=== PATIENT | male | born 1945 | race Caucasian/White ===

== ENCOUNTER → 2017-09-16 07:04 | Outpatient (CLI) | payer MEDICARE, OTHER, SELFPAY ==
[2017-09-16 09:09] LABS: Albumin, Serum 3.5 g/dL (3.2-5.0); BUN 32 mg/dL (7-18); BUN/Creat Ratio 18.8 RATIO (10-20); Calcium,Total 8.7 mg/dL (8.5-10.1); Chloride 105 mmol/L (98-107); EST Glomerular Filtration Rate 42 mL/min (>60); Est Glom Filt Rate - Afr Amer 51 mL/min (>60); Glucose 138 mg/dL (74-106); Phosphorus 2.7 mg/dL (2.5-4.9); Potassium 4.4 mmol/L (3.5-5.1); Sodium Level 139 mmol/L (136-145)
== END ==
PROVIDERS: Family Provider Family Medicine; PCP Family Medicine; Visit Provider Internal Medicine Nephrology
DX: N18.3 Chronic kidney disease, stage 3 (moderate) (principal)
CPT/HCPCS: 36415; 80069

== ENCOUNTER 2018-02-09 05:32 | Emergency (ER) | payer MEDICARE, OTHER, SELFPAY ==
[2018-02-09 05:34] VITALS: BP 135/62; PULSE 105; RESP 24; TEMP 35.4; O2SAT 95; BMI 47.0
[2018-02-09] MEDS: Oxymetazoline 0.05% 1 SPRAY SPRAY.BTL 2 SPRAY NASAL (05:39)
--- NOTE | 2018-02-09 06:08 | ED.VISSUMM ---
- ER Visit Summary Date of Service: 02/09/18 Chief Complaint: Nosebleed History of Present Illness: The patient is a 72 M who woke this morning developed nosebleed from the right nostril. Patient is currently on Xarelto. He has reportedly had cold symptoms recently. Past history significant for coronary disease, AK, COPD, diabetes, hypertension, high cholesterol. Physical Examination: Vital signs significant for mild tachycardia at 105. Patient sitting on the side of bed with a nasal clamp in place. Head and neck examination reveals blood in the right nare. Posterior pharyngeal exam reveals mild blood. Heart is regular rate and rhythm. Lung sounds are clear. Test Results: [] Emergency Department Course and Treatment: Nasal clamp was removed and cottonball saturated with Cetacaine and Afrin was placed in the right nostril. After a few minutes this was removed and a 5.5 cm Rhino Rocket was placed in the right nostril. Mouth was washed. On repeat examination patient has had no further bleeding. Patient is able to ambulate in the emergency room with me with no further bleeding. He is sent home with a syringe to remove the balloon if needed emergently. He will be referred to Dr. Velasquez, on-call for ENT. He is to follow-up in 2-3 days. Treatment Plan: [] Disposition: Discharge Impression: Epistaxis This note was generated with [employer] dictation software. It may contain incorrect words, spelling, and punctuation that were not noted in review of the chart prior to signing ED Disposition - Plan for ED Patient: Chief Complaint: Nosebleed Referrals: Mauro Espinosa MD [Primary Care Provider] -
--- NOTE | 2018-02-09 06:44 | ED.DEP ---
ED Disposition - Plan for ED Patient: Disposition: Home or Assisted Living Chief Complaint: Nosebleed Instructions: Nosebleed Referrals: Landon Odell MD [STAFF PHYSICIAN] - 2 Days
--- NOTE | 2018-02-09 06:52 | ED.DEP ---
ED Disposition - Plan for ED Patient: Disposition: Home or Assisted Living Chief Complaint: Nosebleed Instructions: Nosebleed Prescriptions: Benzonatate [Tessalon Perle] 100 mg PO 4X/DAY PRN PRN #14 cap PRN Reason: Cough Referrals: Landon Odell MD [STAFF PHYSICIAN] - 2 Days
[2018-02-09 06:54] VITALS: BP 122/65; PULSE 86; RESP 16; O2SAT 95
== END 2018-02-09 06:56 | disposition home or self-care (01) ==
PROVIDERS: Emergency Provider Emergency Medicine; Family Provider Family Medicine; PCP Family Medicine
DX: R04.0 Epistaxis (principal); I25.10 Atherosclerotic heart disease of native coronary artery without angina pectoris; I25.2 Old myocardial infarction; I10 Essential (primary) hypertension; J44.9 Chronic obstructive pulmonary disease, unspecified; E78.00 Pure hypercholesterolemia, unspecified; E11.9 Type 2 diabetes mellitus without complications; Z79.01 Long term (current) use of anticoagulants; Z79.82 Long term (current) use of aspirin; Z79.84 Long term (current) use of oral hypoglycemic drugs; Z79.899 Other long term (current) drug therapy; Z87.891 Personal history of nicotine dependence
CPT/HCPCS: 30903; 99282

== ENCOUNTER → 2018-05-03 10:02 | Outpatient (CLI) | payer MEDICARE, OTHER, SELFPAY ==
[2018-05-03 11:37] LABS: Hematocrit 36.3 % (40-54); Hemoglobin 10.9 g/dl (13.0-16.5); Mean Corpuscular Hgb 24.8 pg (27.0-32.0); Mean Corpuscular Volume 82.5 fL (80-94); Platelet Count 209 K/mm3 (150-450); RBC Distribution Width CV 19.1 % (11.6-14.6); RBC Distribution Width SD 58.2 fl (35.1-43.9); White Blood Count 9.7 K/mm3 (4.4-11.0)
[2018-05-03 11:42] LABS: Scan Indicated on CBC? Y/N NO
[2018-05-03 12:00] LABS: PTHIN 45.2 pg/mL (18.4-80.1)
[2018-05-03 12:01] LABS: Albumin, Serum 3.5 g/dL (3.2-5.0); BUN 29 mg/dL (7-18); BUN/Creat Ratio 15.1 RATIO (10-20); Calcium,Total 9.5 mg/dL (8.5-10.1); Chloride 102 mmol/L (98-107); Creatinine, Serum 1.92 mg/dL (0.70-1.30); EST Glomerular Filtration Rate 37 mL/min (>60); Est Glom Filt Rate - Afr Amer 45 mL/min (>60); Glucose 62 mg/dL (74-106); Phosphorus 3.5 mg/dL (2.5-4.9); Potassium 4.2 mmol/L (3.5-5.1); Sodium Level 140 mmol/L (136-145)
== END ==
PROVIDERS: Family Provider Family Medicine; PCP Family Medicine; Referring Provider Internal Medicine Nephrology; Visit Provider Internal Medicine Nephrology
DX: N18.3 Chronic kidney disease, stage 3 (moderate) (principal)
CPT/HCPCS: 36415; 80069; 83970; 85027

== ENCOUNTER 2018-07-21 22:28 | Emergency (ER) | payer MEDICARE, OTHER, SELFPAY ==
[2018-07-21 22:29] VITALS: PULSE 80; RESP 16; TEMP 36.7; O2SAT 97; BMI 48.6
[2018-07-21] MEDS: Mixture 30 ML Bottle 5 ML TOPICAL (22:55)
--- NOTE | 2018-07-21 22:56 | ED.DCSUM_ITS ---
History of Present Illness Chief Complaint: Nosebleed Informant: Patient Onset: Hours - 1 Context: Sudden Onset - w/ coughing Timing: Continuous Quality: brisk oozing Location: left naris Current Severity: Moderate Maximum Severity: Severe Worsened by: nothing Relieved by: holding pressure Associated Symptoms: nasal discomfort. no sob, FB, injury. Narrative: On Xarelto. Thinks maybe due to chronic Afib. Has had spontaneous nosebleeds in past, from both sides. Swallowing some blood but not a lot. Mainly bleeding from left side this time. Prior similar symptoms: Yes Recent Illness/Hospitalization: No - Past Medical History (1) DM (diabetes mellitus), type 2 Status: Chronic (2) HLD (hyperlipidemia) Status: Chronic (3) HTN (hypertension) Status: Chronic (4) History of abdominal aortic aneurysm repair Status: Chronic (5) History of acute myocardial infarction Status: Chronic Comment: in 2002 (6) KASIA on CPAP Status: Chronic (7) Pulmonary hypertension Status: Chronic Comment: PA 31 on an ECHO from 2009 (8) COPD (chronic obstructive pulmonary disease) Status: Chronic Past Medical History - Allergies and Home Meds Allergies/Adverse Reactions: Allergies No Known Allergies Allergy (Verified 07/21/18 22:31) Primary Care Physician: Fili Walls MD [STAFF PHYSICIAN] - (2-3 days -- call for appt, and tell them you are on Xarelto) Surgical History: no surgical history, herniorrhaphy - 1967, tonsillectomy, - - aortic anuerysm in 2009 Lives: Spouse/ Significant Other Smoking Status: Unknown if ever smoked - Family History Maternal Family History: Reports: Heart Disease - His mother at the age of 88 and had coronary artery disease and Cancer and he does not know where the cancer started Paternal Family History: Reports: Heart Disease - His father at the age of 81 Sibling Family History: Reports: - - he has 3 siblings and states that they are all h ealthy Offspring Family History: Reports: - - he has a dtr who has an irregular heart rhythm Review of Systems General: Denies: Chills, Fever ENT: Reports: - - nosebleed. nose pain. Cardiovascular: Denies: Chest pain Respiratory: Reports: Cough. Denies: Dyspnea, Sputum Gastrointestinal: Denies: Nausea, Vomiting Physical Exam Vital Signs/Narrative: Vital Signs Temp Pulse Resp Pulse Ox 07/21/18 22:29 98.0 F 80 16 97 Inital Vital Signs reviewed: Yes General: Well nourished, Well developed, Obese, No Acute Distress Head: Normocephalic, Atraumatic ENT: Moist mucous membranes, - - bilateral nares w/ blood and clots present, mild active bleeding left naris. blood present in POP w/o active bleeding there. Respiratory: No distress, - - no stridor Diagnostic/Tx/Re-eval - Medical Decision Making Patient with mild oozing while holding pressure, brisk bleeding from the left naris when not holding pressure. Airway patent. After setting up equipment and medication for vasoconstriction and local anesthesia, I gave the patient a box of tissues and had him blow all of the blood and clots out of both sides of his nose, he was able to move air through both sides easily. I placed a cotton ple dget soaked in Cass mix into the left naris, the patient tilted so that the medication ran back into his posterior oropharynx, and after 10-15 minutes, bleeding was well controlled. I reexamined him. I do not see the etiology of the bleeding. The right side is clear. There is no active posterior oropharyngeal bleeding. After discussing with the patient, and recommending a packing, he was amenable to it and provided verbal consent. He was given a 5.5 cm rapid Rhino which controlled his bleeding well. Advised that he follow-up with ENT in 2-3 days for reevaluation and removal. Procedures Procedure(s): Anterior nasal packing -- Inflatable rapid rhino 5.5cm inserted w/o complication, tolerated well, bleeding well-controlled. ED Disposition - Plan for ED Patient: Disposition: Home or Assisted Living Diagnosis: Acute anterior epistaxis Instructions: Nosebleed Referrals: Fili Walls MD [STAFF PHYSICIAN] - (2-3 days -- call for appt, and tell them you are on Xarelto)
[2018-07-21 23:30] VITALS: BP 140/65
== END 2018-07-21 23:32 | disposition home or self-care (01) ==
PROVIDERS: Emergency Provider Emergency Medicine; Family Provider Family Medicine; PCP Family Medicine
DX: R04.0 Epistaxis (principal); I48.2 Chronic atrial fibrillation; I25.2 Old myocardial infarction; I10 Essential (primary) hypertension; I27.20 Pulmonary hypertension, unspecified; E11.9 Type 2 diabetes mellitus without complications; E78.5 Hyperlipidemia, unspecified; J44.9 Chronic obstructive pulmonary disease, unspecified; G47.33 Obstructive sleep apnea (adult) (pediatric); Z79.01 Long term (current) use of anticoagulants; Z79.82 Long term (current) use of aspirin; Z79.84 Long term (current) use of oral hypoglycemic drugs; Z79.899 Other long term (current) drug therapy
CPT/HCPCS: 30901; 99282

== ENCOUNTER 2018-09-30 02:51 | Inpatient (IN) | payer MEDICARE, OTHER, SELFPAY ==
[2018-09-30] VITALS (15 sets, daily range): BP systolic 107–151; BP diastolic 56–97; PULSE 80–92; RESP 16–21; TEMP 36–36.8; O2SAT 93–97; BMI 48.4; BMI 49.0; BMI 49.1
[2018-09-30] MEDS: Ondansetron 4 MG/2 ML Vial IM (03:20)
[2018-09-30] MEDS: TRANEXAMIC ACID 1,000 MG/10 ML ML 500 MG OPERA.SITE (03:22)
[2018-09-30] MEDS: TRANEXAMIC ACID 1,000 MG/10 ML ML 500 MG IRRIGATION (04:03)
--- NOTE | 2018-09-30 04:34 | ED.DCSUM_ITS ---
- ER Visit Summary Date of Service: 09/30/18 Chief Complaint: Patient presents for nosebleed. History of Present Illness: The patient is a 73 M who presents for left-sided nosebleed. Patient woke up at 00:30 coughing and noted his nose then began to bleed. He noted blood coming from the left nostril. Patient is on Xarelto. He applied pressure and was unable to get the bleeding to stop. He denies any shortness of breath or nausea. Patient has had prior nosebleeds while on Xarelto that were difficult to control. Physical Examination: Patient is awake and alert, sitting on the bed, emesis basin in hand and towel pinching nose, blood on hands and face, emesis basin with blood in it. No respiratory distress. Brisk bleeding from the left naris. Some oozing from the right naris. Blood noted in the mouth and mild posterior pharynx. No increased work of breathing. Heart regular rate and rhythm. Remainder of exam unremarkable at this time. Test Results: Abnormal Lab Results 09/30/18 09/30/18 09/30/18 04:15 04:15 04:15 WBC 9.2 RBC 3.78 L Hgb 10.1 L Hct 32.9 L MCV 87.0 MCH 26.7 L MCHC 30.7 L RDW 17.1 H RDW Differential 53.5 H Plt Count 176 MPV 11.1 Immature Gran % (Auto) 0.200 Neut % (Auto) 73.9 H Lymph % (Auto) 14.1 L Thomas % (Auto) 10.2 H Eos % (Auto) 1.3 Baso % (Auto) 0.3 Absolute Neuts (auto) 6.8 Absolute Lymphs (auto) 1.30 Total Counted Not Reportable PT 26.1 H INR 2.4 APTT 57.9 H Sodium 137 Potassium 5.1 Chloride 105 Carbon Dioxide 27.0 Anion Gap 5 BUN 35 H Creatinine 1.57 H Estim Creat Clear Calc 38.38 Est GFR (MDRD) Af Amer 56 L Est GFR (MDRD) Non-Af 46 L BUN/Creatinine Ratio 22.3 H Glucose 134 H Calcium 8.4 L Medications Given Discontinued Medications Ondansetron HCl (Zofran) 4 mg IM X1 ONE Stop: 09/30/18 03:20 Last Admin: 09/30/18 03:20 Dose: 4 mg Thrombin (Floseal) 1 kit TOPICAL X1 ONE Stop: 09/30/18 03:46 Last Admin: 09/30/18 03:48 Dose: 1 kit Tranexamic Acid (Tranexamic Acid) 500 mg OPERA.SITE X1 ONE Stop: 09/30/18 03:21 Last Admin: 09/30/18 03:22 Dose: 500 mg Tranexamic Acid (Tranexamic Acid) 500 mg IRRIGATION X1 ONE Stop: 09/30/18 04:02 Last Admin: 09/30/18 04:03 Dose: 500 mg Emergency Department Course and Treatment: Patient presents with brisk bleeding from the left naris. Because of the briskness, Rhino Rocket packing was initially used. Patient blew the clots out of the naris. A 7.5 cm Rhino Rocket was soaked in sterile water and inserted gently and without resistance into the left naris. It was inflated until the balloon was medium soft. Bleeding initially slowed down, however then patient began dry heaving, resulting in significant bleeding from the anterior naris around the Rhino Rocket on the left. Patient continued to dry heave, and the Rhino Rocket was removed, result ing in no further dry heaving or gagging. Because patient did not tolerate the Rhino Rocket, 500 mg of TXA was diluted and 5 cc of sterile water and nebulized. Patient had significant slow down of the bleeding from the left naris. After the nebulized TXA, Merocel was placed into the left naris and the remainder of the TXA was used to saturate it. Again, patient began coughing and dry heaving and did not tolerate the placement of the Merocel. Left naris began bleeding again and dripping from the Merocel. Attempted placement of Floseal without success. Patient began briskly bleeding around it. Patient discussed with Dr. Wheeler, and rhinorocket soaked in TXA attempted, this time less inflated. Patient tolerated the rhinorocket this time, and bleeding slowed to a small ooze anteriorly. No posterior bleeding into the pharynx noted. CBC, coags, and type and screen obtained. Patient discussed with Dr. Seo for admission with Dr. Wheeler on consult. Patient continued to have minor oozing but no further serious bleeding. Treatment Plan: [] Disposition: [] Impression: Left anterior epistaxis, anticoagulated on Xarelto This note was generated with [employer] dictation software. It may contain incorrect words, spelling, and punctuation that were not noted in review of the chart prior to signing ED Disposition - Plan for ED Patient: Disposition: Acute Care Hospital [facility]
[2018-09-30 04:42] LABS: Absolute Neutrophil Count 6.8 X10^3/uL (2.0-7.7); Basophil# 0.03 X10^3/uL; Basophil% 0.3 % (0-1); Eosinophil# 0.12 X10^3/uL; Eosinophils% 1.3 % (0-5); Hematocrit 32.9 % (40-54); Hemoglobin 10.1 g/dl (13.0-16.5); Lymphocyte % 14.1 % (19-41); Mean Corp Hgb Conc 30.7 g/gl (32-36); Mean Corpuscular Hgb 26.7 pg (27.0-32.0); Mean Platelet Vol. 11.1 fl (6.2-12.0); Monocyte# 0.94 X10^3/uL; Monocyte% 10.2 % (0-10); Neutrophil # 6.78 X10^3/uL (2.7-7.7); Neutrophil % 73.9 % (47-70); Platelet Count 176 K/mm3 (150-450); RBC Distribution Width CV 17.1 % (11.6-14.6); RBC Distribution Width SD 53.5 fl (35.1-43.9); Red Blood Count 3.78 M/mm3 (4.6-6.2); White Blood Count 9.2 K/mm3 (4.4-11.0)
[2018-09-30 04:43] LABS: POSITIVE COUNT NO; POSITIVE DIFFERENTIAL NO; POSITIVE MORPHOLOGY NO
[2018-09-30 04:47] LABS: Anion Gap 5 (5-15); BUN 35 mg/dL (7-18); BUN/Creat Ratio 22.3 RATIO (10-20); Calcium,Total 8.4 mg/dL (8.5-10.1); Chloride 105 mmol/L (98-107); Creatinine, Serum 1.57 mg/dL (0.70-1.30); EST Glomerular Filtration Rate 46 mL/min (>60); Est Glom Filt Rate - Afr Amer 56 mL/min (>60); Estimated Creatinine Clearance 38.38 ml/min; Glucose 134 mg/dL (74-106); Potassium 5.1 mmol/L (3.5-5.1); Sodium Level 137 mmol/L (136-145)
[2018-09-30 04:48] LABS: International Normalized Ratio 2.4; Prothrombin Time (Protime)PT. 26.1 SECONDS (11.7-14.9)
[2018-09-30 04:49] LABS: Partial Thromboplast Time 57.9 Seconds (24.1-36.2)
--- NOTE | 2018-09-30 04:50 | HP.PCM_ITS ---
Problem List (1) Nosebleed Status: Acute (2) PAF (paroxysmal atrial fibrillation) Status: Chronic (3) COPD (chronic obstructive pulmonary disease) Status: Chronic Qualifiers: COPD type: unspecified COPD Qualified Code(s): J44.9 - Chronic obstructive pulmonary disease, unspecified (4) DM (diabetes mellitus), type 2 Status: Chronic Qualifiers: Diabetes mellitus extermination inspector insulin use: without shelter use Diabetes mellitus complication status: with unspecified complications Qualified Code(s): E11.8 - Type 2 diabetes mellitus with unspecified complications (5) HLD (hyperlipidemia) Status: Chronic Qualifiers: Hyperlipidemia type: unspecified Qualified Code(s): E78.5 - Hyperlipidemia, unspecified (6) HTN (hypertension) Status: Chronic Qualifiers: Hypertension type: essential hypertension Qualified Code(s): I10 - Essential (primary) hypertension (7) History of abdominal aortic aneurysm repair Status: Chronic (8) History of acute myocardial infarction Status: Chronic Comment: in 2002 (9) Morbid obesity with body mass index of 40.0-49.9 Status: Chronic (10) KASIA on CPAP Status: Chronic (11) Pulmonary hypertension Status: Chronic Comment: PA 31 on an ECHO from 2009 History of Present Illness Date of Admission: 09/30/18 Chief Complaint: Nosebleed The patient is a 73 y/o M w/ PMHx: Chronic normocytic anemia, CAD s/p CABG but unclear interventions following w/ [employer] in [place], ? Valvular Heart Disease, Hx MT, HTN, HLD, Morbid Obesity, Chronic COPD, Former heavy tobacco use, Diabetes mellitus type II, PAF s/p pacemaker on Xarelto, KASIA on CPAP q HS who presents to the [facility] ED on 09/30/18 with history of ongoing nosebleed from the left nare 12:30 pm, noted to have awoken with a coughing fit prompting the ble eding with ongoing bleeding despite notable applied pressure. Patient had rhinorocket placed secondary to the severity of the bleeding; however, the patient began to dry heave resulting in a significant amount of bleeding from the anterior nare around the rocket therefore this was removed and 500 mg of TXA was diluted and 5 cc of sterile water and nebulized was performed w/ improvement in the bleeding. Patient had recurrent coughing, dry heaving with poor tolerance from the Merocel, additionally, floseal with continued bleeding. Repeat attempt for rhinorocket soaked in TXA attempted with less inflation with some slowing of the oozing. Work-up in the ED work-up included T 96.8, HR 89, BP 118/58, RR 18, 96% on RA, pending CBC, coags, BMP and T+S at time of request to evaluate patient. ENT was consulted per ED and willing to immediately evaluate the patient in case of re-bleeding. ENT requested initiation of augmentin. Requested ice pack addition to current interventions in the ED. Past Medical History Past Medical History (Chronic Problems): Chronic Problems PAF (paroxysmal atrial fibrillation) (Chronic) History of abdominal aortic aneurysm repair (Chronic) HLD (hyperlipidemia) (Chronic) Pulmonary hypertension (Chronic) PA 31 on an ECHO from 2009 Morbid obesity with body mass index of 40.0-49.9 (Chronic) DM (diabetes mellitus), type 2 (Chronic) KASIA on CPAP (Chronic) Nicotine addiction (Chronic) Ventral hernia without obstruction or gangrene (Chronic) Umbilical hernia without obstruction or gangrene (Chronic) HTN (hypertension) (Chronic) COPD (chronic obstructive pulmonary disease) (Chronic) History of acute myocardial infarction (Chronic) in 2002 Allergies No Known Allergies Allergy (Verified 09/30/18 02:51) Home Medications: Ambulatory Orders Medication Instructions Recorded Aspirin [Aspirin, Baby] 81 mg PO DAILY@0800 10/04/14 Atorvastatin Calcium [Lipitor] 20 mg PO QHS 10/04/14 Lisinopril/Hydrochlorothiazide 1 each PO DAILY 10/04/14 [Zestoretic 20-12.5 mg Tablet] Metformin HCl [Glucophage] 1,000 mg PO BIDCM 10/04/14 Metoprolol Tartrate [Lopressor 50 mg PO DAILY 10/04/14 (Beta Veronica)] Woodworth-3 Fatty Acids/Fish Oil [Fish 1,000 mg PO DAILY 10/04/14 Oil 1,000 mg Capsule] glyBURIDE [Micronase] 2.5 mg GT BIDCM 10/04/14 Benzonatate [Tessalon Perle] 100 mg PO 4X/DAY PRN PRN #14 cap 02/09/18 Rivaroxaban [Xarelto] 15 mg PO DAILY 07/21/18 Surgical History: herniorrhaphy - 1967, tonsillectomy, - - aortic anuerysm in 2010 s/p repair, R inguinal hernia repair, T+A, pacemaker, cataracts BL. Psychiatric History: No pertinent psych hx Lives: Spouse/ Significant Other Smoking Status: Former smoker - Patient quit cigarette tobacco usage approximately 4 years prior to current presentation with prior to this 1 to 1.5 pack/day starting approximately 50 years before this. Tobacco Use: Non-smoker Alcohol: None Drugs: None - *Family History Maternal History Items: - - She notes a maternal history of diabetes as well as breast cancer in addition to coronary disease, at age 88. Paternal History Items: - - Patient notes a paternal family history of heart disease, CHF, past age 81. Sibling History Items: - - he has 3 siblings and states that they are all healthy Offspring History Items: - - he has a dtr who has an irregular heart rhythm Review of Systems Constitutional: Reports: Malaise, Weakness, Fatigue. Denies: Chills, Fever, Weight Change HEENT: Reports: Nasal bleeding. Denies: Head Aches, Sinus Congestion, Sinus Drainage Cardiovascular: Denies: Chest Pain, Edema, Heaviness, Light Headedness, Palpitations Respiratory: Denies: Cough, Shortness of Breath, Shortness of breath at rest, Shortness of breath upon exertion, Sputum production Gastrointestinal: Denies: Abdominal Pain, Nausea, Vomiting Genitourinary: Denies: Dysuria Musculoskeletal: Reports: Back Pain, Joint Pain. Denies: Joint Tenderness Skin: Denies: Rash, Wounds Neurological: Denies: Numbness, Tingling, Focal weakness Psychiatric: Denies: Anxiety, Depression, Homicidal Ideations, Suicidal Ideations Hematologic/ Lymphatic: Reports: Easy Bruising, Easy Bleeding VTE Information - Inpt Only VTE Present on Admission: No VTE Mechan Device Prophylaxis: SCD's VTE Pharm Prophylaxis ordered?: No Reason prophylaxis not ordered:: Medical Contraindication Patient Problems: Active and Suspected Problems Nosebleed (Acute) Subjective: Seated upright in ED chair, fatigued appearance, ongoing mild oozing, although improved, from the left nare, full with packing, rocket. Objective: Physical Examination: General: awake, alert, oriented x 3 and cooperative, seated upright in the ED bedside chair, fatigued appearance, constantly wiping at the mild oozing coming from the left nare, packing in place. Skin: normal color, turgor, no icterus, cyanosis except occasional ecchymoses, very staged. HEENT: AT/NC, EOMI, PERRLA, dry MM, notable packing the left nare, status post notable epistaxis, mild oozing still from left nare, no carotid bruits or JVD noted; however, thickened neck and current acute presentation examination difficult. Lungs: CTA bilaterally, moderate effort, moderate decrease BL bases, no rales, ronchi or wheezing. Heart: Regular rate and rhythm; no gallop, rub audible. Abdomen: soft, obese, difficult to assess given seated habitus but unwilling to lay down secondary to epistaxis, nondistended, normal bowel sounds, difficult to assess HSM secondary to habitus. Extremities: no cyanosis, clubbing, BL LE pedal-ankle edema. Neurological: patient awake, alert, oriented x 3; cognitive function intact; pupils equally reactive to light and accomodation; cranial nerves II-XII grossly normal, moving all 4 extremities, no focal deficits, strength appears intact although limited examination given attempt to avoid aggressive activity to avoid rebleed of left nare. Psychiatric: affect appears fatigued, no acute evidence of depressive or anxiety feelings. - Physical Exam Vital Signs Temp Pulse Resp BP Pulse Ox 96.8 F L 89 17 118/72 95 09/30/18 02:54 09/30/18 02:54 09/30/18 02:54 09/30/18 02:54 09/30/18 02:54 Oxygen Delivery Method Room Air Weight: 300 lb Body Mass Index (BMI) 48.4 Laboratory Tests Past 24 Hrs 09/30/18 09/30/18 09/30/18 04:15 04:15 04:15 WBC Pending RBC Pending Hgb Pending Hct Pending MCV Pending MCH Pending MCHC Pending RDW Pending RDW Differential Pending Plt Count Pending Neut % (Auto) Pending Absolute Neuts (auto) Pending Total Counted Pending PT Pending INR Pending APTT Pending Sodium Pending Potassium Pending Chloride Pending Carbon Dioxide Pending Anion Gap Pending BUN Pending Creatinine Pending Est GFR (MDRD) Af Amer Pending Est GFR (MDRD) Non-Af Pending BUN/Creatinine Ratio Pending Glucose Pending Calcium Pending Assessment/Plan All Active Problems Nosebleed (Acute) SOB (shortness of breath) on exertion (Acute) The patient is a 73 y/o M w/ PMHx: Chronic normocytic anemia, CAD s/p CABG but unclear interventions following w/ [employer] in [place], ? Valvular Heart Disease, Hx MT, HTN, HLD, Morbid Obesity, Chronic COPD, Former heavy tobacco use, Diabetes mellitus type II, PAF s/p pacemaker on Xarelto, KASIA on CPAP q HS who presents to the [facility] ED on 09/30/18 with history of ongoing nosebleed from the left nare 12:30 pm, noted to have awoken with a coughing fit prompting the bleeding with ongoing bleeding despite notable applied pressure. (1) Intractable L Nare Epistaxsis: We will admit to MedSurg, maintain nasal packing, maintain on Augmentin, ENT aware of patient and if any further bleeding does occur we will immediately evaluate patient, trend H&H with pending admission CBC, holding aspirin as well as Xarelto regimen, discussed that risk to benefit ratio may be indicative of discontinuation of his anticoagulant given history of frequent serial heavy nasal bleeds, bed rest except bathroom privileges, maintain ice pack to nasal bridge, no aggressive activity, n.p.o. status until clinically improved and evaluated per ENT. (2) Chronic normocytic anemia: Awaiting admission labs, baseline prior appears 10, trend. (3) Chronic COPD: Defer usage of scheduled aerosols to avoid coughing fit, PRN albuterol, HOB, IS parameters. (4) KASIA: Defer CPAP given acute presentation. Likely causative of frequent nosebleeds given dry constant flow to his nares. (5) Diabetes mellitus type II: Hold oral home regimen, NPO status given acute presentation w/ possible OR needs, accu checks w/ ISS. (6) Hypertension: Continue home regimen including lisinopril, hydrochlorothiazide, metoprolol with strict hold parameters, PRN hydralazine. (7) Hyperlipidemia: Continue home statin regimen. (8) CAD: Status post MT, status post CABG but unclear interventions, denies any PCI history, holding aspirin, Xarelto, continue DAVID inhibitor, beta-veronica, statin therapy. (9) PAF: Holding aspirin, Xarelto, maintain on home metoprolol regimen. Discussed that given patient serial history of nasal bleeds with very notable difficulty treating and subsiding possibly may need to discontinue Xarelto regimen as risk greater than benefit. (10) CKD stage III: Awaiting admission labs, noted prior evidence stage III, baseline appears 1.5-1.9. (11) History of AAA: s/p repair per patient report, unclear exact intervention, poor historian. (12) Morbid Obesity: Weight loss and lifestyle changes encouraged, nutrition consulted. (13) Former Tobacco use: Encourage continued cessation. (14) DVT prophylaxis: SCDs, holding xarelto. Code Visit Inpatient E&M: 36831 Init Hosp L3
[2018-09-30 05:54] LABS: Magnesium 2.4 mg/dL (1.6-2.6)
[2018-09-30 06:35] LABS: Bedside Glucose 135 mg/dL (70-110)
[2018-09-30] MEDS: 0.9% Normal Saline 1,000 ML 100 ML IV (06:54)
[2018-09-30] MEDS: Amox/Clavulanate 875 MG Tablet PO ×2 (08:24→19:56)
[2018-09-30 08:54] LABS: Hematocrit 30.2 % (40-54); Hemoglobin 9.4 g/dl (13.0-16.5)
--- NOTE | 2018-09-30 10:34 | CASEMGMT ---
RN CM Assessment Presentation: Epistaxis with packing, recurrent and intractable. Intro role of CM and purpose of RN CM assessment to patient and his in room. Demographics, PCP and Pharmacy verified. Per , pt is independent in ADL, but if needed she is able to assist him. Pt and state they do not anticipate any dc needs. Pt appears painful, states he has not taken pain medication. RN CM let nurse pt is visibly uncomfortable. RN will speak with pt. PCP: Dr. Mauro Espinosa Specialists: Dr. Morales Preferred Pharmacy: [facility] Insurance: [employer] Prescription Benefit: yes LNOK: , Alesha Feliciano Living Arrangements: Lives independently with his . States he is independent in ADL, and does not require assistance. Transportation: pt drives, and if unable, can assist with transportation. DME: Cpap from [employer]. Discussed change in DME as [facility] closed including [employer], [employer], [employer]. No ambulatory assist devices per pt/. HHC: none Patient DC goals: Home on dc DC PLAN: Anticipate home on discharge. Fidencio OWEN RN ACM
[2018-09-30] MEDS: Acetaminophen 325 MG Tablet 650 MG PO ×3 (11:26→23:24)
[2018-09-30] MEDS: Ondansetron 4 MG/2 ML Vial IV (11:27)
--- NOTE | 2018-09-30 11:52 | CON.PCM_ITS ---
Problem List (1) Nosebleed Status: Acute Reason for Consult Date of Consultation: 09/30/18 History of Present Illness: The patient is a 73 year old M with multiple medical problems, notably with afib on xarelto with a significant history of epistaxis requiring balloon nasal packing presented to the ED with a left nosebleed. multiple attempts by the ED staff were unsuccessful; however a rhino rocket was placed in the left that temporized the situation. he reached the floor and began bleeding out of his right nostril. Past Medical History Past Medical History (Chronic Problems): Chronic Problems PAF (paroxysmal atrial fibrillation) (Chronic) History of abdominal aortic aneurysm repair (Chronic) HLD (hyperlipidemia) (Chronic) Pulmonary hypertension (Chronic) PA 31 on an ECHO from 2009 Morbid obesity with body mass index of 40.0-49.9 (Chronic) DM (diabetes mellitus), type 2 (Chronic) KASIA on CPAP (Chronic) Nicotine addiction (Chronic) Ventral hernia without obstruction or gangrene (Chronic) Umbilical hernia without obstruction or gangrene (Chronic) HTN (hypertension) (Chronic) COPD (chronic obstructive pulmonary disease) (Chronic) History of acute myocardial infarction (Chronic) in 2002 Allergies No Known Allergies Allergy (Verified 09/30/18 02:51) Home Medications: Ambulatory Orders Medication Instructions Recorded Aspirin [Aspirin, Baby] 81 mg PO DAILY@0800 10/04/14 Atorvastatin Calcium [Lipitor] 20 mg PO QHS 10/04/14 Lisinopril/Hydrochlorothiazide 1 each PO DAILY 10/04/14 [Zestoretic 20-12.5 mg Tablet] Metoprolol Tartrate [Lopressor 50 mg PO DAILY 10/04/14 (Beta Veronica)] [place]-3 Fatty Acids/Fish Oil [Fish 1,000 mg PO BID 10/04/14 Oil 1,000 mg Capsule] glyBURIDE [Micronase] 2.5 mg GT BIDCM 10/04/14 Benzonatate [Tessalon Perle] 100 mg PO 4X/DAY PRN PRN #14 cap 02/09/18 Rivaroxaban [Xarelto] 15 mg PO DAILY 07/21/18 Cyanocobalamin (Vitamin B-12) 1,000 mcg PO 09/30/18 [Vitamin B-12] Insulin Lispro [Humalog] 0 unit 09/30/18 Spironolactone 25 mg PO DAILY 09/30/18 Surgical History: herniorrhaphy - 1967, tonsillectomy, - - aortic anuerysm in 2010 s/p repair, R inguinal hernia repair, T+A, pacemaker, cataracts BL. Psychiatric History: No pertinent psych hx Lives: Spouse/ Significant Other Smoking Status: Former smoker Tobacco Use: Non-smoker Alcohol: None Drugs: None - *Family History Maternal History Items: - - She notes a maternal history of diabetes as well as breast cancer in addition to coronary disease, at age 88. Paternal History Items: - - Patient notes a paternal family history of heart disease, CHF, past age 81. Sibling History Items: - - he has 3 siblings and states that they are all healthy Offspring History Items: - - he has a dtr who has an irregular heart rhythm Review of Systems Constitutional: Denies: Chills, Fever, Weight Change HEENT: Reports: Nasal bleeding Cardiovascular: Denies: Chest Pain, Palpitations Respiratory: Reports: - - no stridor or dyspnea Patient Problems: Active and Suspected Problems Nosebleed (Acute) - Physical Exam General: Alert, Oriented x3, Cooperative Oral: - - posterior pharynx without clots or active bleeding Neck: Supple, No Nodes Lungs: - - no stridor Vital Signs Temp Pulse Resp BP Pulse Ox 98.0 F 82 18 108/67 93 09/30/18 11:20 09/30/18 11:20 09/30/18 11:20 09/30/18 11:20 09/30/18 11:20 Oxygen Delivery Method Room Air Weight: 142.1 kg Body Mass Index (BMI) 49.0 Intake and Output for Last 24 Hours 09/28/18 09/29/18 09/30/18 23:59 23:59 23:59 Intake Total 550 / 550 Output Total 200 / 200 Balance 350 / 350 Laboratory Tests Past 24 Hrs 09/30/18 09/30/18 09/30/18 04:15 04:15 04:15 WBC 9.2 RBC 3.78 L Hgb 10.1 L Hct 32.9 L MCV 87.0 MCH 26.7 L MCHC 30.7 L RDW 17.1 H RDW Differential 53.5 H Plt Count 176 MPV 11.1 Immature Gran % (Auto) 0.200 Neut % (Auto) 73.9 H Lymph % (Auto) 14.1 L [place] % (Auto) 10.2 H Eos % (Auto) 1.3 Baso % (Auto) 0.3 Absolute Neuts (auto) 6.8 Absolute Lymphs (auto) 1.30 Total Counted Not Reportable PT 26.1 H INR 2.4 APTT 57.9 H Sodium 137 Potassium 5.1 Chloride 105 Carbon Dioxide 27.0 Anion Gap 5 BUN 35 H Creatinine 1.57 H Estim Creat Clear Calc 38.38 Est GFR (MDRD) Af Amer 56 L Est GFR (MDRD) Non-Af 46 L BUN/Creatinine Ratio 22.3 H Glucose 134 H Calcium 8.4 L Magnesium Blood Type Antibody Screen 09/30/18 09/30/18 09/30/18 04:15 04:15 08:40 WBC RBC Hgb 9.4 L Hct 30.2 L MCV MCH MCHC RDW RDW Differential Plt Count MPV Immature Gran % (Auto) Neut % (Auto) Lymph % (Auto) [place] % (Auto) Eos % (Auto) Baso % (Auto) Absolute Neuts (auto) Absolute Lymphs (auto) Total Counted PT INR APTT Sodium Potassium Chloride Carbon Dioxide Anion Gap BUN Creatinine Estim Creat Clear Calc Est GFR (MDRD) Af Amer Est GFR (MDRD) Non-Af BUN/Creatinine Ratio Glucose Calcium Magnesium 2.4 Blood Type A POSITIVE Antibody Screen NEGATIVE POC Glucose 09/30/18 06:15 POC Glucose 135 H Assessment/Plan All Active Problems Nosebleed (Acute) SOB (shortness of breath) on exertion (Acute) 73 year old anticoagulated male with a history of intractable epistaxis admitted for left nasal bleed -the right sided bleeding and oropharyngeal clots/bleeding seen this morning has stopped - likely not a right sided bleed but left bleeding crossing via the [place] -he has had rhino rockets placed 3 times before and they all have worked -hold anticoagulation if possible - will leave this up to the hospitalist -can discharge tomorrow am if no further bleeding, on amoxicillin and pain medication -f/u at [facility] on thursday - call [phone] for an appt
--- NOTE | 2018-09-30 15:02 | PN_ITS ---
<Luli Gimenez - Last Filed: 09/30/18 15:02> Patient Problems: Active and Suspected Problems Nosebleed (Acute) Subjective: Patient seen and examined. Complains of hoarseness due to postnasal drainage and left nostril/eye discomfort. Has had a small amount of bleeding from the right nares. - Physical Exam General: Alert, Oriented x3, Cooperative HEENT: Atraumatic, PERRLA, EOMI, Normocephalic, - - Left nare packing in place. Neck: Supple, No JVD, Negative Carotid Bruits Lungs: Clear to auscultation, Normal air movement Cardiovascular: Regular rate, Regular Rhythm, Normal S1, Normal S2, No murmurs Abdomen: Bowel Sounds Present, Soft, Non Tender, Non-Distended, Obese Extremities: No clubbing, No cyanosis, No edema, Capillary Refill Less than 3 Seconds Skin: No rashes, No breakdown Musculoskeletal: No Tenderness to Palpation of Joints or Extremities Neurological: Cranial nerves II-XII grossly intact, Neuro grossly intact Psych/Mental Status: Normal Affect, Appropriate Vital Signs Temp Pulse Resp BP Pulse Ox 98.0 F 82 18 108/67 93 09/30/18 11:20 09/30/18 11:20 09/30/18 11:20 09/30/18 11:20 09/30/18 11:20 Oxygen Delivery Method Room Air Weight: 313 lb 4.43 oz Body Mass Index (BMI) 49.0 Intake and Output for Last 24 Hours 09/28/18 09/29/18 09/30/18 23:59 23:59 23:59 Intake Total 550 / 550 Output Total 200 / 200 Balance 350 / 350 Laboratory Tests Past 24 Hrs 09/30/18 09/30/18 09/30/18 04:15 04:15 04:15 WBC 9.2 RBC 3.78 L Hgb 10.1 L Hct 32.9 L MCV 87.0 MCH 26.7 L MCHC 30.7 L RDW 17.1 H RDW Differential 53.5 H Plt Count 176 MPV 11.1 Immature Gran % (Auto) 0.200 Neut % (Auto) 73.9 H Lymph % (Auto) 14.1 L [place] % (Auto) 10.2 H Eos % (Auto) 1.3 Baso % (Auto) 0.3 Absolute Neuts (auto) 6.8 Absolute Lymphs (auto) 1.30 Total Counted Not Reportable PT 26.1 H INR 2.4 APTT 57.9 H Sodium 137 Potassium 5.1 Chloride 105 Carbon Dioxide 27.0 Anion Gap 5 BUN 35 H Creatinine 1.57 H Estim Creat Clear Calc 38.38 Est GFR (MDRD) Af Amer 56 L Est GFR (MDRD) Non-Af 46 L BUN/Creatinine Ratio 22.3 H Glucose 134 H Calcium 8.4 L Magnesium Blood Type Antibody Screen 09/30/18 09/30/18 09/30/18 04:15 04:15 08:40 WBC RBC Hgb 9.4 L Hct 30.2 L MCV MCH MCHC RDW RDW Differential Plt Count MPV Immature Gran % (Auto) Neut % (Auto) Lymph % (Auto) [place] % (Auto) Eos % (Auto) Baso % (Auto) Absolute Neuts (auto) Absolute Lymphs (auto) Total Counted PT INR APTT Sodium Potassium Chloride Carbon Dioxide Anion Gap BUN Creatinine Estim Creat Clear Calc Est GFR (MDRD) Af Amer Est GFR (MDRD) Non-Af BUN/Creatinine Ratio Glucose Calcium Magnesium 2.4 Blood Type A POSITIVE Antibody Screen NEGATIVE POC Glucose 09/30/18 06:15 POC Glucose 135 H Medical Necessity - Tobacco Use Smoking Status: Former smoker Tobacco Use: Non-smoker Assessment/Plan All Active Problems Nosebleed (Acute) SOB (shortness of breath) on exertion (Acute) 1. Acute intractable left epistaxis-ENT on consult. Right-sided bleeding has stopped. Hold Xarelto. Continue Augmentin. If no further bleeding, possible discharge tomorrow with follow-up ENT as outpatient. Left nare Rhino Rocket in place. 2. Chronic normocytic anemia-stable, trend CBC. 3. Chronic COPD-no acute exacerbation. 4. KASIA-defer CPAP secondary to #1. 5. Type 2 diabetes [id number]-Typiv AC at bedtime with sliding scale insulin. 6. Hypertension-stable, continue lisinopril, HCTZ, metoprolol. 7. Hyperlipidemia-continue statin. 8. CAD status post CABG-hold aspirin, Xarelto. Continue DAVID inhibitor, beta- roseann, statin. 9. Paroxysmal atrial fibrillation-hold aspirin, Xarelto as noted above. Continue beta-roseann. Discussed with patient that Xarelto may need discontinued indefinitely given history of recurrent nasal bleeds. 10. CKD stage III-at baseline, trend BMP. 11. History of AAA status post repair 12. Morbid obesity-encourage diet lifestyle modifications. 13. Former tobacco use-encourage cessation. DVT prophylaxis-SCDs This patient was seen by ALEJANDRO Prince under the supervision of Dr. Tim. <MeetaShalonda - Last Filed: 09/30/18 15:15> - Physical Exam Vital Signs Temp Pulse Resp BP Pulse Ox 98.0 F 82 18 108/67 93 09/30/18 11:20 09/30/18 11:20 09/30/18 11:20 09/30/18 11:20 09/30/18 11:20 Oxygen Delivery Method Room Air Weight: 313 lb 4.43 oz Body Mass Index (BMI) 49.0 Intake and Output for Last 24 Hours 09/28/18 09/29/18 09/30/18 23:59 23:59 23:59 Intake Total 550 / 550 Output Total 200 / 200 Balance 350 / 350 Laboratory Tests Past 24 Hrs 09/30/18 09/30/18 09/30/18 04:15 04:15 04:15 WBC 9.2 RBC 3.78 L Hgb 10.1 L Hct 32.9 L MCV 87.0 MCH 26.7 L MCHC 30.7 L RDW 17.1 H RDW Differential 53.5 H Plt Count 176 MPV 11.1 Immature Gran % (Auto) 0.200 Neut % (Auto) 73.9 H Lymph % (Auto) 14.1 L [place] % (Auto) 10.2 H Eos % (Auto) 1.3 Baso % (Auto) 0.3 Absolute Neuts (auto) 6.8 Absolute Lymphs (auto) 1.30 Total Counted Not Reportable PT 26.1 H INR 2.4 APTT 57.9 H Sodium 137 Potassium 5.1 Chloride 105 Carbon Dioxide 27.0 Anion Gap 5 BUN 35 H Creatinine 1.57 H Estim Creat Clear Calc 38.38 Est GFR (MDRD) Af Amer 56 L Est GFR (MDRD) Non-Af 46 L BUN/Creatinine Ratio 22.3 H Glucose 134 H Calcium 8.4 L Magnesium Blood Type Antibody Screen 09/30/18 09/30/18 09/30/18 04:15 04:15 08:40 WBC RBC Hgb 9.4 L Hct 30.2 L MCV MCH MCHC RDW RDW Differential Plt Count MPV Immature Gran % (Auto) Neut % (Auto) Lymph % (Auto) [place] % (Auto) Eos % (Auto) Baso % (Auto) Absolute Neuts (auto) Absolute Lymphs (auto) Total Counted PT INR APTT Sodium Potassium Chloride Carbon Dioxide Anion Gap BUN Creatinine Estim Creat Clear Calc Est GFR (MDRD) Af Amer Est GFR (MDRD) Non-Af BUN/Creatinine Ratio Glucose Calcium Magnesium 2.4 Blood Type A POSITIVE Antibody Screen NEGATIVE POC Glucose 09/30/18 06:15 POC Glucose 135 H Assessment/Plan Patient seen by Luli Gimenez NP-C under my supervision Patient seen and examined. He was admitted with a complaint of left nasal epistasis. It was packed in the ED. He is on anti-Coblation for A. fib. On arrival to the floor, he started bleeding from his right nostril as well. ENT has evaluated him and thought that the bleeding from the right nostril is likely due to bleeding from the left nostril crossing the corner. Patient had no other complaints on review except the nasal bleed. Review of systems otherwise negative. He has had a history of recurrent T-cell plates. Labs and vitals reviewed. o/e: Vital Signs Height 5 ft 7 in Weight: 313 lb 4.43 oz Weight in Pounds 313.3 lbs Pulse Ox 93 Temperature 98.0 F Pulse Rate 82 Respiratory Rate 18 Blood Pressure 108/67 Blood Pressure Position Sitting General: Alert, Oriented x3, Cooperative HEENT: Atraumatic, PERRLA, EOMI, Normocephalic, - - Left nasal packing in place. had dried blood around right nostril Neck: Supple, No JVD, Negative Carotid Bruits Lungs: Clear to auscultation, Normal air movement Cardiovascular: Regular rate, Regular Rhythm, Normal S1, Normal S2, No murmurs Abdomen: Bowel Sounds Present, Soft, Non Tender, Non-Distended, Obese Extremities: No clubbing, No cyanosis, No edema, Capillary Refill Less than 3 Seconds Skin: No rashes, No breakdown Musculoskeletal: No Tenderness to Palpation of Joints or Extremities Neurological: Cranial nerves II-XII grossly intact, Neuro grossly intact Psych/Mental Status: Normal Affect, Appropriate Plan is to continue holding anticoagulants- xarelto and apsirin. Right nasal bleeding had stopped at time of review and didn't recur. Per ENT, to continue monitoring. Maintain left nasal packing in place. Continue augmentin started per ENT. For possible dc tomorrow if bleeding doesnt recur. ' Rest of management as per Luli Gimenez TILE MOLDER-C's note, which I have reviewed and endorsed. Code Visit Inpatient E&M: 15645 Subs Hosp L2
--- NOTE | 2018-09-30 15:16 | CHAPLAIN ---
Type of Pastoral Visit _x__ Initial Visit ___ Follow-up Visit ___ On-call Visit ___ General Patient Visit ___ Spiritual Assessment ___ Family Conference ___ Bereavement ___ Rapid Response ___ Code Blue ___ Other (describe below) Pastoral Care Referral From _x__ Patient ___ Family ___ Nurse ___ Physician ___ Arborist Representative ___ Can Technician ___ Other (describe below) Sacrament/Intervention _x__ Active listening ___ Anointing ___ Synagogue ___ Bereavement ___ Communion ___ Denise exploration ___ ___ Life review _x__ Prayer ___ Reconciliation ___ Sacrament of Sick _x__ Supportive presence ___ Wedding ___ Other (describe below) Pastoral Comments
[2018-09-30 16:00] LABS: Bedside Glucose 102 mg/dL (70-110)
[2018-09-30 16:56] LABS: Bedside Glucose 198 mg/dL (70-110)
[2018-09-30] MEDS: Insulin Lispro 100 UNIT/ML INSULN.PEN SQ (17:13)
[2018-09-30] MEDS: Atorvastatin Calcium 20 MG Tablet PO (19:56)
[2018-09-30 23:20] LABS: Bedside Glucose 128 mg/dL (70-110)
[2018-09-30] MEDS: MELATONIN 3 MG TABLET PO (23:32)
[2018-10-01 01:50] VITALS: BP 142/87; PULSE 99; RESP 21; TEMP 36.8; O2SAT 96
[2018-10-01 01:59] VITALS: RESP 21; O2SAT 96
[2018-10-01 02:59] VITALS: PULSE 80
[2018-10-01] MEDS: Insulin Lispro 100 UNIT/ML INSULN.PEN SQ (06:54)
[2018-10-01 07:01] LABS: Bedside Glucose 167 mg/dL (70-110)
[2018-10-01 07:18] LABS: Anion Gap 6 (5-15); BUN 42 mg/dL (7-18); BUN/Creat Ratio 28.4 RATIO (10-20); Calcium,Total 8.6 mg/dL (8.5-10.1); Chloride 108 mmol/L (98-107); Creatinine, Serum 1.48 mg/dL (0.70-1.30); EST Glomerular Filtration Rate 50 mL/min (>60); Est Glom Filt Rate - Afr Amer 60 mL/min (>60); Estimated Creatinine Clearance 42.18 ml/min; Glucose 147 mg/dL (74-106); Potassium 4.8 mmol/L (3.5-5.1); Sodium Level 138 mmol/L (136-145)
[2018-10-01 07:20] LABS: Absolute Lymphocyte Count 1.46 X10^3/ul (0.83-4.51); Absolute Neutrophil Count 6.4 X10^3/uL (2.0-7.7); Basophil# 0.03 X10^3/uL; Basophil% 0.3 % (0-1); Eosinophil# 0.13 X10^3/uL; Eosinophils% 1.5 % (0-5); Hematocrit 29.8 % (40-54); Hemoglobin 9.5 g/dl (13.0-16.5); Lymphocyte # 1.46 X10^3/ul (4.0); Lymphocyte % 16.6 % (19-41); Mean Corp Hgb Conc 31.9 g/gl (32-36); Mean Corpuscular Hgb 27.5 pg (27.0-32.0); Mean Corpuscular Volume 86.1 fL (80-94); Mean Platelet Vol. 11.1 fl (6.2-12.0); Monocyte# 0.79 X10^3/uL; Neutrophil # 6.36 X10^3/uL (2.7-7.7); Neutrophil % 72.4 % (47-70); Platelet Count 178 K/mm3 (150-450); RBC Distribution Width CV 17.2 % (11.6-14.6); RBC Distribution Width SD 53.7 fl (35.1-43.9); Red Blood Count 3.46 M/mm3 (4.6-6.2); White Blood Count 8.8 K/mm3 (4.4-11.0)
[2018-10-01 07:21] LABS: POSITIVE COUNT NO; POSITIVE DIFFERENTIAL NO; POSITIVE MORPHOLOGY NO
[2018-10-01 07:30] VITALS: PULSE 80
[2018-10-01] MEDS: Acetaminophen 325 MG Tablet 650 MG PO (08:16)
[2018-10-01 08:17] VITALS: BP 128/61; PULSE 82; RESP 20; TEMP 36.7; O2SAT 98
[2018-10-01] MEDS: Lisinopril 20 MG Tablet PO (08:23)
[2018-10-01 08:24] VITALS: PULSE 82
[2018-10-01] MEDS: Amox/Clavulanate 875 MG Tablet PO (08:24)
[2018-10-01] MEDS: Metoprolol Tartrate 50 MG Tablet PO (08:24)
[2018-10-01] MEDS: hydroCHLOROthiazide 12.5mg 12.5 MG PO (08:24)
--- NOTE | 2018-10-01 11:03 | PCM.DC ---
- Discharge Diagnoses Current Active Problems: Current Active and Chronic Problems Nosebleed (Acute) PAF (paroxysmal atrial fibrillation) (Chronic) You will use the following diet at home:: Calorie/Carbohydrate Controlled (specify 1200, 1400, etc), Cardiac Discharge Activity: Return to Normal Activity Call your doctor if you observe: - - Recurrent nose bleed. Allergies/Adverse Reactions: Allergies No Known Allergies Allergy (Verified 09/30/18 02:51) Medications to take at Discharge Atorvastatin Calcium [Lipitor] 20 mg PO QHS 10/04/14 Lisinopril/Hydrochlorothiazide [Zestoretic 20-12.5 mg Tablet] 1 each PO DAILY 10/04/14 Metoprolol Tartrate [Lopressor (beta roseann)] 50 mg PO DAILY 10/04/14 [place]-3 Fatty Acids/Fish Oil [Fish Oil 1,000 mg Capsule] 1,000 mg PO BID 10/04/14 glyBURIDE [Micronase] 2.5 mg GT BIDCM 10/04/14 Benzonatate [Tessalon Perle] 100 mg PO 4X/DAY PRN PRN #14 cap 02/09/18 Cyanocobalamin (Vitamin B-12) [Vitamin B-12] 1,000 mcg PO 09/30/18 Insulin Lispro [Humalog] 0 unit 09/30/18 Spironolactone 25 mg PO DAILY 09/30/18 Amox/Clavulanate Tablet [Augmentin Tablet] 875 mg PO BID #10 tablet 10/01/18 Furosemide [Lasix] 80 mg PO DAILY 10/01/18 The following prescriptions were given: Amox/Clavulanate Tablet [Augmentin Tablet] 875 mg PO BID #10 tablet Primary Care Physician: Mauro Espinosa MD [Primary Care Provider] - Please follow up with your Primary Care Physician in: 1 Week Test Results: Test results from this visit will be discussed in further detail at your follow-up appointment, if applicable. Please Follow Up With: Jean Claude Wheeler MD When: As scheduled, Thursday10/04/18 Please Follow Up With: Primary Supervisor [employer] When: 1-2 Weeks Proposed Discharge Date: 10/01/18
--- NOTE | 2018-10-01 11:11 | DS.PCM_ITS ---
<Luli Gimenez - Last Filed: 10/01/18 11:12> Discharge Date and Diagnosis Date of Admission: 09/30/18 Date of Discharge: 10/01/18 - Primary Discharge Diagnosis Active and Suspected Problems 1. Acute intractable left epistaxis 2. Chronic normocytic anemia. 3. Chronic COPD 4. KASIA 5. Type 2 diabetes mellitus 6. Hypertension 7. Hyperlipidemia 8. CAD status post CABG 9. Paroxysmal atrial fibrillation 10. CKD stage III 11. History of AAA status post repair 12. Morbid obesity 13. Former tobacco use - Secondary Discharge Diagnosis Chronic Problems PAF (paroxysmal atrial fibrillation) (Chronic) History of abdominal aortic aneurysm repair (Chronic) HLD (hyperlipidemia) (Chronic) Pulmonary hypertension (Chronic) PA 31 on an ECHO from 2009 Morbid obesity with body mass index of 40.0-49.9 (Chronic) DM (diabetes mellitus), type 2 (Chronic) KASIA on CPAP (Chronic) Nicotine addiction (Chronic) Ventral hernia without obstruction or gangrene (Chronic) Umbilical hernia without obstruction or gangrene (Chronic) HTN (hypertension) (Chronic) COPD (chronic obstructive pulmonary disease) (Chronic) History of acute myocardial infarction (Chronic) in [address] Course and Treatment [address]. Wheeler- ENT Operations: None Procedures: None Summary of Care Provided: The patient is a 73 year old M admitted 09/30/2017 due to nosebleed. 1. Acute intractable left epistaxis-ENT on consult. Right-sided bleeding has stopped. Hold Xarelto, aspirin. Continue Augmentin at discharge until packing is removed. Left nasal Rhino Rocket in place. Follow up with Dr. Wheeler, ENT on 10/04/18 as scheduled. Follow up with primary menu planner in 1-2 weeks. Recommend discontinuing anticoagulation going forward however recommend further discussion with cardiology as well. 2. Chronic normocytic anemia-stable. 3. Chronic COPD-no acute exacerbation. 4. KASIA-defer CPAP secondary to #1. 5. Type 2 diabetes mellitus-continue home regimen. 6. Hypertension-stable, continue lisinopril, HCTZ, metoprolol. 7. Hyperlipidemia-continue statin. 8. CAD status post CABG-hold aspirin, Xarelto. Continue DAVID inhibitor, beta- roseann, statin. 9. Paroxysmal atrial fibrillation-hold aspirin, Xarelto as noted above. Continue beta-roseann. Discussed with patient that Xarelto may need di scontinued indefinitely given history of recurrent nasal bleeds. 10. CKD stage III-at baseline. 11. History of AAA status post repair 12. Morbid obesity-encourage diet lifestyle modifications. 13. Former tobacco use-encourage cessation. General: Alert, Oriented x3, Cooperative HEENT: Atraumatic, PERRLA, EOMI, Normocephalic, Left nasal packing in place. Neck: Supple, No JVD, Negative Carotid Bruits Lungs: Clear to auscultation, Normal air movement Cardiovascular: Regular rate, Regular Rhythm, Normal S1, Normal S2, No murmurs Abdomen: Bowel Sounds Present, Soft, Non Tender, Non-Distended, Obese Extremities: No clubbing, No cyanosis, No edema, Capillary Refill Less than 3 Seconds Skin: No rashes, No breakdown Musculoskeletal: No Tenderness to Palpation of Joints or Extremities Neurological: Cranial nerves II-XII grossly intact, Neuro grossly intact Psych/Mental Status: Normal Affect, Appropriate Patient seen and examined prior to discharge. Physical assessment as noted above. Patient is stable for discharge with follow up recommendations as noted above. This patient was seen by ALEJANDRO Prince under the supervision of Dr. Kingsley. - Physical Exam Vital Signs Temp Pulse Resp BP Pulse Ox 98.1 F 82 20 H 128/61 H 98 10/01/18 08:17 10/01/18 08:24 10/01/18 08:17 10/01/18 08:17 10/01/18 08:17 Oxygen Delivery Method Room Air Weight: 313 lb 4.43 oz Body Mass Index (BMI) 49.0 Intake and Output for Last 24 Hours 09/29/18 09/30/18 10/01/18 23:59 23:59 23:59 Intake Total 1589 / 1589 600 / 600 Output Total 200 / 200 250 / 250 Balance 1389 / 1389 350 / 350 Laboratory Tests Past 24 Hrs 10/01/18 10/01/18 06:06 06:06 WBC 8.8 RBC 3.46 L Hgb 9.5 L Hct 29.8 L MCV 86.1 MCH 27.5 MCHC 31.9 L RDW 17.2 H RDW Differential 53.7 H Plt Count 178 MPV 11.1 Immature Gran % (Auto) 0.200 Neut % (Auto) 72.4 H Lymph % (Auto) 16.6 L [place] % (Auto) 9.0 Eos % (Auto) 1.5 Baso % (Auto) 0.3 Absolute Neuts (auto) 6.4 Absolute Lymphs (auto) 1.46 Total Counted Not Reportable Sodium 138 Potassium 4.8 Chloride 108 H Carbon Dioxide 24.0 Anion Gap 6 BUN 42 H Creatinine 1.48 H Estim Creat Clear Calc 42.18 Est GFR (MDRD) Af Amer 60 Est GFR (MDRD) Non-Af 50 L BUN/Creatinine Ratio 28.4 H Glucose 147 H Calcium 8.6 POC Glucose 10/01/18 09/30/18 09/30/18 06:51 22:53 16:46 POC Glucose 167 H 128 H 198 H 09/30/18 11:19 POC Glucose 102 Discharge Diet: Low fat/ Low Cholesterol Discharge Activity: Return to Normal Activity Call your doctor if you observe: - - Recurrent nose bleed. Home Medications: Medications to take at Discharge Atorvastatin Calcium [Lipitor] 20 mg PO QHS 10/04/14 Lisinopril/Hydrochlorothiazide [Zestoretic 20-12.5 mg Tablet] 1 each PO DAILY 10/04/14 Metoprolol Tartrate [Lopressor (beta roseann)] 50 mg PO DAILY 10/04/14 [place]-3 Fatty Acids/Fish Oil [Fish Oil 1,000 mg Capsule] 1,000 mg PO BID 10/04/14 glyBURIDE [Micronase] 2.5 mg GT BIDCM 10/04/14 Benzonatate [Tessalon Perle] 100 mg PO 4X/DAY PRN PRN #14 cap 02/09/18 Cyanocobalamin (Vitamin B-12) [Vitamin B-12] 1,000 mcg PO 09/30/18 Insulin Lispro [Humalog] 0 unit 09/30/18 Spironolactone 25 mg PO DAILY 09/30/18 Amox/Clavulanate Tablet [Augmentin Tablet] 875 mg PO BID #10 tablet 10/01/18 Furosemide [Lasix] 80 mg PO DAILY 10/01/18 Following Prescrptions Were Given to Patient: Amox/Clavulanate Tablet [Augmentin Tablet] 875 mg PO BID #10 tablet Primary Care Physician: Mauro Espinosa MD [Primary Care Provider] - Please follow up with your Primary Care Physician in: 1 Week Please Follow Up With: Jean Claude Wheeler MD When: As scheduled, Thursday10/04/18 Please Follow Up With: Primary Director Television When: 1-2 Weeks Disposition: Home Minutes spent on discharge:: 35 Patient Condition:: Stable Medical Necessity - Tobacco Use Smoking Status: Former smoker Tobacco Use: Non-smoker Meaningful Use Info Meaningful Use Diagnoses (Choose all that apply): None applicable <Fili Kingsley - Last Filed: 10/01/18 14:51> Discharge Date and Diagnosis - Secondary Discharge Diagnosis Chronic Problems PAF (paroxysmal atrial fibrillation) (Chronic) History of abdominal aortic aneurysm repair (Chronic) HLD (hyperlipidemia) (Chronic) Pulmonary hypertension (Chronic) PA 31 on an ECHO from 2009 Morbid obesity with body mass index of 40.0-49.9 (Chronic) DM (diabetes mellitus), type 2 (Chronic) KASIA on CPAP (Chronic) Nicotine addiction (Chronic) Ventral hernia without obstruction or gangrene (Chronic) Umbilical hernia without obstruction or gangrene (Chronic) HTN (hypertension) (Chronic) COPD (chronic obstructive pulmonary disease) (Chronic) History of acute myocardial infarction (Chronic) in 2002 Hospital Course and Treatment Operations: None Procedures: None Summary of Care Provided: Patient seen and examined independently. Data reviewed. I agree with the above note by the nurse practitioner. 1. Epistaxis: Resolved but patient does have a Rhino Rocket in his left nares. Complicated by antiplatelets and Xarelto. Both of those medications have been held. Patient to follow-up with Dr. Morales on the for removal of the Rhino Rocket. The Xarelto will be held indefinitely for now but after the Rhino Rocket is been discussion of the ENT as to when it can be resumed. Patient will be put on empiric antibiotics with this epistaxis and Rhino Rocket. Review of evidence does not show convincing evidence that it is fully effective but it may help reduce the risk to a very small degree of toxic shock syndrome but seems very unlikely but would defer that to ENT if you would need to extend beyond the length of time that he would have the Rhino Rocket in place. 2. Paroxysmal atrial fibrillation: Both the aspirin as well as Xarelto has been held in light of the epistaxis. Further conversation will need to take place between ENT and cardiology in regards to if anticoagulation can ever be resumed but at this point time that is currently off the table. [] - Physical Exam General: Alert, No apparent distress HEENT: Atraumatic, Normocephalic, - - Rhino Rocket in left nares. Oral: Moist Mucosa, No Gingival or Mucosal Lesions/ Ulcerations Neck: No Nodes, Thyroid Normal Size and Texture Lungs: Clear to auscultation, Normal air movement, No rhonchi, No wheeze Vital Signs Temp Pulse Resp BP Pulse Ox 36.7 C 82 20 H 128/61 H 98 10/01/18 08:17 10/01/18 08:24 10/01/18 08:17 10/01/18 08:17 10/01/18 08:17 Oxygen Delivery Method Room Air Weight: 142.1 kg Body Mass Index (BMI) 49.0 Intake and Output for Last 24 Hours 09/29/18 09/30/18 10/01/18 23:59 23:59 23:59 Intake Total 1589 / 1589 600 / 600 Output Total 200 / 200 250 / 250 Balance 1389 / 1389 350 / 350 Laboratory Tests Past 24 Hrs 10/01/18 10/01/18 06:06 06:06 WBC 8.8 RBC 3.46 L Hgb 9.5 L Hct 29.8 L MCV 86.1 MCH 27.5 MCHC 31.9 L RDW 17.2 H RDW Differential 53.7 H Plt Count 178 MPV 11.1 Immature Gran % (Auto) 0.200 Neut % (Auto) 72.4 H Lymph % (Auto) 16.6 L [place] % (Auto) 9.0 Eos % (Auto) 1.5 Baso % (Auto) 0.3 Absolute Neuts (auto) 6.4 Absolute Lymphs (auto) 1.46 Total Counted Not Reportable Sodium 138 Potassium 4.8 Chloride 108 H Carbon Dioxide 24.0 Anion Gap 6 BUN 42 H Creatinine 1.48 H Estim Creat Clear Calc 42.18 Est GFR (MDRD) Af Amer 60 Est GFR (MDRD) Non-Af 50 L BUN/Creatinine Ratio 28.4 H Glucose 147 H Calcium 8.6 POC Glucose 10/01/18 10/01/18 09/30/18 11:52 06:51 22:53 POC Glucose 149 H 167 H 128 H 09/30/18 09/30/18 16:46 11:19 POC Glucose 198 H 102 Discharge Diet: Low fat/ Low Cholesterol Discharge Activity: Return to Normal Activity Call your doctor if you observe: - Disposition: Home Patient Condition:: Stable Meaningful Use Info Meaningful Use Diagnoses (Choose all that apply): None applicable Code Visit Inpatient E&M: 39872 Disch Hosp
[2018-10-01 13:06] LABS: Bedside Glucose 149 mg/dL (70-110)
--- NOTE | 2018-10-04 15:32 | CASEMGMT ---
MARION CM DC PHONE CALL DC DATE: 10/01/18 DC Disposition: Home LACE/STRATA: 02/24 Attempted call to phone. Message machine did not have pt identifier so no message left. Fidencio OWEN RN ACM
== END 2018-10-01 12:10 | disposition home or self-care (01) | DRG 151 ==
LOC: ED 03:57 → PCU 05:12
PROVIDERS: Student in an Organized Health Care Education/Training Program; Admitting Provider Family Medicine; Emergency Provider Emergency Medicine; Family Provider Family Medicine; PCP Family Medicine
DX: R04.0 Epistaxis (principal); Z68.42 Body mass index [BMI] 45.0-49.9, adult; E66.01 Morbid (severe) obesity due to excess calories; I25.10 Atherosclerotic heart disease of native coronary artery without angina pectoris; E78.5 Hyperlipidemia, unspecified; G47.33 Obstructive sleep apnea (adult) (pediatric); I48.0 Paroxysmal atrial fibrillation; I12.9 Hypertensive chronic kidney disease with stage 1 through stage 4 chronic kidney disease, or unspecified chronic kidney disease; E11.22 Type 2 diabetes mellitus with diabetic chronic kidney disease; N18.3 Chronic kidney disease, stage 3 (moderate); D64.9 Anemia, unspecified; J44.9 Chronic obstructive pulmonary disease, unspecified; I25.2 Old myocardial infarction; I27.20 Pulmonary hypertension, unspecified; Z95.1 Presence of aortocoronary bypass graft; Z79.01 Long term (current) use of anticoagulants; Z79.84 Long term (current) use of oral hypoglycemic drugs; Z87.891 Personal history of nicotine dependence; Z86.79 Personal history of other diseases of the circulatory system
CPT/HCPCS: 36415; 80048; 82962; 83735; 85014; 85018; 85025; 85610; 85730; 86850; 86900; 97802; 99284; J7030; A4216; J2405

== ENCOUNTER → 2018-12-17 10:36 | Outpatient (CLI) | payer MEDICARE, OTHER, SELFPAY ==
[2018-09-30 05:54] VITALS: BMI 49.0
--- NOTE | 2018-12-17 10:39 | VDLE_ITS ---
Reason For Study: LLE swelling Procedure LEFT Exam performed in department. GSV is normal. The study was technically difficult. CFV is compressible, spontaneous, phasic, Due to body habitus. competent, and demonstrates normal A preliminary report was called and/or faxed augmentation. to Dr. Espinosa @ 11:10 am. FV is compressible, spontaneous, phasic, competent and demonstrates normal augmentation. POP V is compressible, spontaneous, phasic, competent and demonstrates normal augmentation. T/P Trunk is compressible. PTV is compressible. Unable to visualize PER V. Interpretation Summary Deep veins of the left lower extremity are patent and compressible segmentally. There is no evidence of left lower extremity deep vein thrombosis. Valvular competence appears intact within the proximal deep venous system on the left . The left greater saphenous vein appears patent and compressible segmentally. The left peroneal vein was not visualized. Ordering Physician: Mauro Espinosa Referring Physician: Mauro Espinosa Performed By: Grisel Lopez, RDCS, RVT
== END ==
PROVIDERS: Family Provider Family Medicine; PCP Family Medicine; Referring Provider Family Medicine; Visit Provider Family Medicine
DX: M79.89 Other specified soft tissue disorders (principal)
CPT/HCPCS: 93971

== ENCOUNTER 2020-07-25 09:16 | Emergency (ER) | payer MEDICARE, OTHER, SELFPAY ==
[2020-07-25 09:17] VITALS: BP 145/68; PULSE 83; RESP 20; TEMP 36.1; O2SAT 97; BMI 47.0
--- NOTE | 2020-07-25 09:38 | ED.DCSUM_ITS ---
History of Present Illness Chief Complaint: Nosebleed Informant: Patient, Family Narrative: Patient is a 75-year-old male with a past medical history of CAD, A. fib, hypertension on Eliquis who presents to the ED for nosebleed. This started around 7 AM this morning. He has had nosebleeds frequently before in the past. He has required coming to the emergency department to get this stopped. He has seen a ear nose and throat doctor one time before in the past. [place] any lightheadedness, chest pain or shortness of breath. Patient denies picking at the nose and stated it started spontaneously this morning. No other bleeding or easy bruising elsewhere. He has been applying pressure to the house which has not gotten the bleeding to stop at this time. He believes it is only coming out of the left nare. Past Medical History - Allergies and Home Meds Allergies/Adverse Reactions: Allergies No Known Allergies Allergy (Verified 07/25/20 09:18) Primary Care Physician: Fili Walls MD [STAFF PHYSICIAN] - 2 Days Mauro Espinosa MD [Primary Care Provider] - Prior records reviewed: Yes Surgical History: herniorrhaphy - 1967, tonsillectomy, - - aortic anuerysm in 2009 s/p repair, R inguinal hernia repair, T+A, pacemaker, cataracts BL. Smoking Status: Former smoker - Family History Maternal Family History: Family History (Last Updated 03/12/20 @ 11:30 by Luli Mesfin) Father Heart disease Mother Diabetes Heart disease Cancer Family History: Reports: - - She notes a maternal history of diabetes as well as breast cancer in addition to coronary disease, at age 88. Paternal Family History: Family History (Last Updated 03/12/20 @ 11:30 by [employer]) Father Heart disease Mother Diabetes Heart disease Cancer Family History: Reports: - - Patient notes a paternal family history of heart disease, CHF, past age 81. Sibling Family History: Family History (Last Updated 03/12/20 @ 11:30 by Luli Mesfin) Father Heart disease Mother Diabetes Heart disease Cancer Family History: Reports: - - he has 3 siblings and states that they are all healthy Offspring Family History: Family History (Last Updated 03/12/20 @ 11:30 by Luli Mesfin) Father Heart disease Mother Diabetes Heart disease Cancer Family History: Reports: - - he has a dtr who has an irregular heart rhythm Review of Systems All systems negative except as indicated General: Denies: Chills, Fever, Sweats Eyes: Denies: Visual changes - bilaterally, Diplopia ENT: Reports: - - Epistaxis. Denies: Rhinorrhea, Sore throat Cardiovascular: Denies: Chest pain, Palpitations Respiratory: Denies: Dyspnea, Cough, Dyspnea on exertion Gastrointestinal: Denies: Abdominal pain, Nausea, Vomiting, Diarrhea Genitourinary: Denies: Dysuria, Hematuria, Frequency Musculoskeletal: Denies: Back pain, Extremity Pain Skin: Denies: Rash, Wounds Neurological: Denies: Headache, Weakness, Numbness Physical Exam Vital Signs/Narrative: Vital Signs Temp Pulse Resp BP Pulse Ox 07/25/20 09:17 97 F L 83 20 H 145/68 H 97 Inital Vital Signs reviewed: Yes General: Well nourished, Well developed, No Acute Distress Head: Normocephalic, Atraumatic Eyes: Perrl, EOMI ENT: Moist mucous membranes, No rhinorrhea, - - Slow venous ooze coming from the left nostril. Neck: Supple, Nontender Cardiovascular: Regular rate, Regular rhythm, No murmurs Respiratory: No distress, CTA bilaterally, Chest nontender Abdomen: Soft, Nontender, Nondistended, Normal bowel sounds, Umbilical hernia Back: Nontender, Normal Inspection Extremities: Nontender, No edema Skin: Normal color, No rash Neurological: Alert, Oriented x3, Cranial nerves II-XII grossly intact, Normal Strength, Normal Sensation Psychological: Normal affect, Normal Mood Diagnostic/Tx/Re-eval - Medical Decision Making Patient presents to the emergency department for epistaxis coming from the left nostril. He is on Eliquis. Upon arrival to the emergency department vital signs within normal limits. Patient having no symptoms of acute blood loss anemia. I initially attempted to control the bleeding with lidocaine/epinephrine soaked gauze but he was bleeding through the gauze so a 5.5 cm anterior nasal Rhino Rocket was placed. This was inflated with 7 cc of air. Patient tolerated this well and bleeding was controlled. He was observed in the emergency department did not have any rebleeding. He is given referral for ear nose and throat to follow-up with. Return precautions were reviewed with him including any worsening bleeding or any symptoms of anemia. He understands and is agreeable this plan. Discharged home in stable condition. ED Disposition - Plan for ED Patient: Disposition: Home or Assisted Living Diagnosis: Epistaxis Instructions: ED Epistaxis (Adult) Referrals: Mauro Espinosa MD [Primary Care Provider] - Fili Walls MD [STAFF PHYSICIAN] - 2 Days
[2020-07-25] MEDS: Lidocaine 4% 50 ML Bottle TOPICAL (11:03)
[2020-07-25] MEDS: EPINEPHrine Nasal 0.1% 30 ML Bottle 5 ML NASAL (11:04)
[2020-07-25 11:20] VITALS: BP 93/69; PULSE 83; RESP 15; O2SAT 98
== END 2020-07-25 11:30 | disposition home or self-care (01) ==
PROVIDERS: Emergency Provider Emergency Medicine; PCP Family Medicine
DX: R04.0 Epistaxis (principal); I25.10 Atherosclerotic heart disease of native coronary artery without angina pectoris; I48.91 Unspecified atrial fibrillation; I10 Essential (primary) hypertension; Z95.0 Presence of cardiac pacemaker; Z79.01 Long term (current) use of anticoagulants; Z79.899 Other long term (current) drug therapy; Z87.891 Personal history of nicotine dependence
CPT/HCPCS: 30903; 99282

== ENCOUNTER 2021-01-22 06:01 | Day surgery (SDC) | payer MEDICARE, OTHER, SELFPAY ==
[2021-01-22] VITALS (7 sets, daily range): BP systolic 105–124; BP diastolic 46–62; PULSE 70–73; RESP 6–20; TEMP 35.5–36.6; O2SAT 93–96; BMI 46.2
--- NOTE | 2021-01-22 07:27 | EX.ED.DYSGE1 ---
HPI History of Present Illness Chief Complaint: Nosebleed Detail of Chief Complaint: Nosebleed started around 5 AM Informant: patient Narrative Narrative: Patient presents to the emergency department complaint of nosebleeds around 5 AM when he got up to use restroom. He denies any trauma to his nose. Patient has history of nosebleeds and states he had to have both sides of his nose cauterized about [address] Landon Odell. Patient also has history of A. fib and had been on apixaban and was taken off 2 weeks ago. Patient currently on Plavix. Prior similar symptoms: [facility] Medical History (Updated 01/22/21 @ 08:[address] Tiffanie Mathis, DO) COPD (chronic obstructive pulmonary disease) DM (diabetes mellitus), type 2 History of acute myocardial infarction HLD (hyperlipidemia) HTN (hypertension) Morbid obesity with body mass index of 40.0-49.9 Nosebleed KASIA on CPAP PAF (paroxysmal atrial fibrillation) Pulmonary hypertension SOB (shortness of breath) on exertion Umbilical hernia without obstruction or gangrene Ventral hernia without obstruction or gangrene Home Medications atorvastatin 20 mg PO QHS 10/04/14 [History Last Taken 09/29/18 19:00] glyburide 2.5 mg GT BIDCM 10/04/14 [History Last Taken 09/29/18 19:00] lisinopril-hydrochlorothiazide 1 ea PO DAILY 10/04/14 [History Last Taken 09/29/18 10:00] metoprolol tartrate 50 mg PO DAILY 10/04/14 [History Last Taken 09/29/18 10:00] cyanocobalamin (vitamin B-12) 1,000 mcg PO DAILY 09/30/18 [History Last Taken 09/29/18 10:00] insulin lispro 0 unit SQ ACHS 09/30/18 [History Last Taken 09/29/18 21:00] spironolactone 25 mg PO DAILY 09/30/18 [History Last Taken 09/29/18 10:00] apixaban 2.5 mg tablet 2.5 mg PO BID 03/12/20 [History Last Taken Unknown] aspirin 81 mg tablet,delayed release 81 mg PO DAILY 03/12/20 [History Last Taken Unknown] furosemide 80 mg tablet 40 mg PO DAILY tab 03/12/20 [History Last Taken Unknown] Allergy/AdvReac Type Severity Reaction Status Date / Time No Known Allergies Allergy Verified 01/22/21 06:05 Family History (Updated 03/12/20 @ 11:30 by Luli Toure) Father Heart disease Mother Diabetes Heart disease Cancer Surgical History History of abdominal aortic aneurysm repair Social History (Updated 03/12/20 @ 12:[address] Oscar Rasheed, DO) Smoking Status: Former smoker quit date: 05/25/14 pack-years: 2 ROS ROS ED Constitutional Constitutional ED: Reports systems reviewed and no addt'l complaints, except as documented; Denies body ache(s), change in weight or chills Eyes Eyes: Denies acute decrease in peripheral vision, change in vision, double vision or loss of vision ENT ENT ED: Reports none and other Details: Nosebleed ; Denies ear pain, lip swelling, loss taste/smell, neck pain, otalgia or sore throat Cardiovascular Cardiovascular: Reports none; Denies abdominal pain, chest pain with activity, leg edema, lightheadedness, palpitations, rapid heart rate or syncope Respiratory/Chest Respiratory/Chest: Reports none; Denies change in mental status, dry cough, dyspnea, hemoptysis, shortness of breath at rest or shortness of breath with exertion Gastrointestinal Gastrointestinal: Reports none; Denies abdominal pain, change in stool character, diarrhea, hematemesis, hematochezia, melena, rectal bleeding or vomiting Genitourinary Genitourinary ED: Reports none; Denies abdominal discomfort, anuria, dysuria, genital pain or polyuria Musculoskeletal Musculoskeletal: Reports none; Denies arthralgias, back pain, difficulty walking, extremity pain, muscle weakness or myalgias Integumentary Reports none; Denies abscess or rash Neurologic Neurologic: Reports none; Denies abnormal gait, confusion, focal weakness, frequent falls, headache(s), loss of vision, numbness, paresthesias, radicular pain, vertigo or weakness Psychiatric Psychiatric: Reports systems reviewed and no addt'l complaints, except as documented and none; Denies behavioral changes, confusion, difficulty concentrating, hallucinations, suicidal ideation, tactile hallucinations or visual hallucinations Endocrine Endocrinology: Denies none, cold intolerance, excessive sweating, fatigue or heat intolerance Hematologic/Lymphatic Hematologic/Lymphatic: Reports none; Denies anemia, easy bleeding or easy bruising Allergic/Immunologic Allergic/Immunologic ED: Denies as per HPI, none, lip swelling, mouth swelling, throat swelling, tongue swelling or hives EXAM Physical Exam Const Vital Signs: 01/22/21 06:02 Temperature 96 F L Temperature Source Temporal Pulse Rate 73 Respiratory Rate 20 H Blood Pressure 105/60 Blood Pressure Mean 75 Pulse Ox 96 Oxygen Delivery Method Room Air Positive well nourished and well developed General Appearance ED: well developed and NAD HEENT Reports TM's clear and moist mucous membranes HEENT Narrative: Patient has blood from the left side of nare with large clot as well as clot noted on the back of the throat. Unable to visualize exact site of bleeding. normocephalic and atraumatic; Negative for trauma or tenderness Tympanic Membrane ED: Yes TM's clear Eyes PERRL and EOMs intact bilaterally General Eye ED: Negative for pale conjunctiva or scleral icterus Neck no lymphadenopathy, supple and no JVD General: Negative for tenderness Chest Wall inspection of chest normal and palpation of chest normal Chest: Negative for tenderness Resp normal respiratory effort and clear to auscultation bilaterally Effort and Inspection: Negative for respiratory distress or pain with movement Auscultation: Negative for rhonchi, wheezes or diminished lung sounds Cardio regular rate, regular rhythm, S1 normal heart sound, S2 normal heart sound and no murmurs Peripheral Pulses: pulses 2+ throughout GI normal to inspection, nondistended, normoactive bowel sounds, soft to palpation, non-tender, non-distended and no masses Back/Spine no CVA tenderness and no thoracic nor lumbar tenderness Extremity normal to inspection General Extremety ED: Negative for edema General Extremity: Negative for edema Neuro oriented x3, CN's II-XII intact bilaterally, no sensory deficits noted and gait normal Sensorium / Orientation: awake, alert, oriented to person, oriented to place and oriented to time Motor Exam: strength 5/5 throughout and strength abnormal Psych mental status grossly normal Skin no rashes or lesions noted and no wounds MDM MDM MDM Narrative Medical decision making narrative: After placing a 7.5 cm Rhino Rocket the left side of the nose patient continues to ooze significantly around the packing. Despite insufflating the balloon several times. Case discussed with patient's ear nose and throat physician Dr. Landon Velasquez who presented to the emergency department to evaluate patient. Patient will be taken to operating room for definitive care. I am concerned about possibility of a posterior nosebleed. Lab Data Attestation: I reviewed the patient's lab results. Labs: Laboratory Results - last 24 hr 01/22/21 01/22/21 07:35 07:35 WBC 10.7 RBC 3.13 L Hgb 8.9 L Hct 29.0 L MCV 92.7 MCH 28.4 MCHC 30.7 L RDW Std Deviation 55.6 H RDW Coeff of Charlee 16.2 H Plt Count 172 MPV 10.9 Immature Gran % (Auto) 0.700 Neut % (Auto) 75.5 H Lymph % (Auto) 11.6 L [place] % (Auto) 10.6 H Eos % (Auto) 0.9 Baso % (Auto) 0.7 Absolute Neuts (auto) 8.1 H Absolute Lymphs (auto) 1.24 Nucleated RBC % 0 Sodium 134 L Potassium 4.3 Chloride 101 Carbon Dioxide 27.0 Anion Gap 6 BUN 55 H Creatinine 1.81 H Estim Creat Clear Calc 33.48 Est GFR (MDRD) Af Amer 47 L Est GFR (MDRD) Non-Af 39 L BUN/Creatinine Ratio 30.4 H Glucose 138 H Calcium 9.1 Procedures Other Procedures Procedure(s): Nasal packing placed the left side of nose with 7.5 cm Rhino Rocket. Discharge Plan Triage Chief Complaint: Nosebleed ED Provider: Tiffanie Mathis Dx/Rx/DC Orders Clinical Impression: Epistaxis Prescriptions: No Action aspirin [Adult Low Dose Aspirin] 81 mg tablet,delayed release (DR/EC) 81 mg PO DAILY RF: 0 Eliquis 2.5 mg tablet 2.5 mg PO BID RF: 0 atorvastatin 20 MG tablet 20 mg PO QHS RF: 0 lisinopril-hydrochlorothiazide 1 EACH tablet 1 ea PO DAILY RF: 0 glyburide 2.5 MG tablet 2.5 mg GT BIDCM RF: 0 metoprolol tartrate 50 MG tablet 50 mg PO DAILY RF: 0 spironolactone 25 MG tablet 25 mg PO DAILY RF: 0 insulin lispro 100 UNIT/ML cartridge 0 unit SQ ACHS RF: 0 cyanocobalamin (vitamin B-12) 1,000 MCG capsule 1,000 mcg PO DAILY RF: 0 furosemide 80 mg tablet 40 mg PO DAILY RF: 0 Primary Care Provider: Mauro Espinosa Referrals: Mauro Espinosa MD [Primary Care Provider] - Disposition Disposition: Acute Care Hospital [facility]
[2021-01-22] MEDS: 0.9% Normal Saline 1,000 ML 1000 ML IV (07:43)
[2021-01-22 07:56] LABS: Absolute Lymphocyte Count 1.24 X10^3/uL (0.83-4.51); Absolute Neutrophil Count 8.1 X10^3/uL (2.0-7.7); Basophil# 0.07 X10^3/uL; Basophil% 0.7 % (0-1); Eosinophils% 0.9 % (0-5); Hemoglobin 8.9 g/dL (13.0-16.5); Lymphocyte # 1.24 X10^3/ul (0.83-4.51); Lymphocyte % 11.6 % (19-41); Mean Corp Hgb Conc 30.7 g/dL (32-36); Mean Corpuscular Hgb 28.4 pg (27.0-32.0); Mean Corpuscular Volume 92.7 fL (80-94); Mean Platelet Vol. 10.9 fl (6.2-12.0); Monocyte# 1.13 X10^3/uL; Monocyte% 10.6 % (0-10); NRBC Flagged by Analyzer 0 % (0-5); Neutrophil # 8.06 X10^3/uL (2.7-7.7); Neutrophil % 75.5 % (47-70); Platelet Count 172 K/mm3 (150-450); RBC Distribution Width CV 16.2 % (11.6-14.6); RBC Distribution Width SD 55.6 fl (35.1-43.9); Red Blood Count 3.13 M/mm3 (4.6-6.2); White Blood Count 10.7 K/mm3 (4.4-11.0)
[2021-01-22 08:12] LABS: Anion Gap 6 (5-15); BUN 55 mg/dL (7-18); BUN/Creat Ratio 30.4 RATIO (10-20); Calcium,Total 9.1 mg/dL (8.5-10.1); Chloride 101 mmol/L (98-107); Creatinine, Serum 1.81 mg/dL (0.70-1.30); EST Glomerular Filtration Rate 39 mL/min (>60); Est Glom Filt Rate - Afr Amer 47 mL/min (>60); Estimated Creatinine Clearance 33.48 ml/min; Glucose 138 mg/dL (74-106); Potassium 4.3 mmol/L (3.5-5.1); Sodium Level 134 mmol/L (136-145)
[2021-01-22 08:45] LABS: Bedside Glucose 141 mg/dL (70-110)
--- NOTE | 2021-01-22 09:29 | PCM.OPRPT ---
Report of Operation Date of Procedure: 01/22/21 Pre-Operative Diagnosis: epistaxis Post-Operative Diagnosis: same Surgery/Procedure Performed:: Endoscopic cautery and packing left epistaxis Surgeon: rojelio weiner Type of Anesthesia: Local MAC Anesthesiologist: Kwame Baca Estimated Blood Loss (mL): 30 cc Description of Procedure: The patient was taken emergently to the operating room on 01/22/2021. He was placed in the supine position on the operating table. His head was elevated 45 degrees. He was given local MAC anesthesia. The rhino rocket was removed from the left nasal cavity. Blood was evacuated from the left nasal cavity. The 0 degree rigid nasal endoscope was used. I was immediately able to identify an arterial bleeder high on the lateral nasal wall in the area of the uncinate process. 4% topical lidocaine was placed on a pledget in this area. Blood was suctioned from the nasal cavity and nasopharynx. The pledget was then removed. I then used monopolar cautery for hemostasis. Once this was achieved I packed the area with Surgicel fibrillar. I then placed a Kostas sinus pack in this area and inflated it with Afrin. The patient was then removed from the operating room brought to the recovery room in stable condition. blood loss 30 cc,replacement none. sponge, needle and instrument count were correct at the end procedure.
--- NOTE | 2021-01-22 09:33 | DS.PCM_ITS ---
Providers Date of Admission: 01/22/21 Primary Care Physician: Dr. Mauro Espinosa MD Reason For Visit: EPISTAXIS, ANEMIA Medications at Discharge Home Medications atorvastatin 20 mg PO QHS 10/04/14 glyburide 2.5 mg GT BIDCM 10/04/14 lisinopril-hydrochlorothiazide 1 ea PO DAILY 10/04/14 metoprolol tartrate 50 mg PO DAILY 10/04/14 cyanocobalamin (vitamin B-12) 1,000 mcg PO DAILY 09/30/18 insulin lispro 0 unit SQ ACHS 09/30/18 spironolactone 25 mg PO DAILY 09/30/18 apixaban 2.5 mg tablet 2.5 mg PO BID 03/12/20 aspirin 81 mg tablet,delayed release 81 mg PO DAILY 03/12/20 furosemide 80 mg tablet 40 mg PO DAILY tab 03/12/20 Weight / BMI Weight Weight: 133.81 kg Body Mass Index (BMI) 46.2 ABG / Lab / Microbiology Data Result Diagrams: 01/22/21 07:35 01/22/21 07:35 Laboratory: Laboratory Results - last 24 hr 01/22/21 07:35: WBC 10.7, RBC 3.13 L, Hgb 8.9 L, Hct 29.0 L, MCV 92.7, MCH 28.4, MCHC 30.7 L, RDW Std Deviation 55.6 H, RDW Coeff of Charlee 16.2 H, Plt Count 172, MPV 10.9, Immature Gran % (Auto) 0.700, Neut % (Auto) 75.5 H, Lymph % (Auto) 11.6 L, [place] % (Auto) 10.6 H, Eos % (Auto) 0.9, Baso % (Auto) 0.7, Absolute Neuts (auto) 8.1 H, Absolute Lymphs (auto) 1.24, Nucleated RBC % 0 01/22/21 07:35: Sodium 134 L, Potassium 4.3, Chloride 101, Carbon Dioxide 27.0, Anion Gap 6, BUN 55 H, Creatinine 1.81 H, Estim Creat Clear Calc 33.48, Est GFR (MDRD) Af Amer 47 L, Est GFR (MDRD) Non-Af 39 L, BUN/Creatinine Ratio 30.4 H, Glucose 138 H, Calcium 9.1 01/22/21 08:34: POC Glucose 141 H D/C Instructions Discharge Diet: No restrictions Discharge Activity: Return to Normal Activity Lifting Restricted to (Lbs): 10 Please Follow Up With: Landon Odell MD When: Friday 01/26. Call for an appt. Meaningful Use Info Meaningful Use Diagnoses (Choose all that apply): None applicable Discharge Plan Admission Admit Date/Time: 01/22/21 08:33 Attending Provider: Landon Odell Primary Care Provider: Mauro Espinosa Discharge Orders/Prescriptions Prescriptions: No Action aspirin [Adult Low Dose Aspirin] 81 mg tablet,delayed release (DR/EC) 81 mg PO DAILY RF: 0 Eliquis 2.5 mg tablet 2.5 mg PO BID RF: 0 atorvastatin 20 MG tablet 20 mg PO QHS RF: 0 lisinopril-hydrochlorothiazide 1 EACH tablet 1 ea PO DAILY RF: 0 glyburide 2.5 MG tablet 2.5 mg GT BIDCM RF: 0 metoprolol tartrate 50 MG tablet 50 mg PO DAILY RF: 0 spironolactone 25 MG tablet 25 mg PO DAILY RF: 0 insulin lispro 100 UNIT/ML cartridge 0 unit SQ ACHS RF: 0 cyanocobalamin (vitamin B-12) 1,000 MCG capsule 1,000 mcg PO DAILY RF: 0 furosemide 80 mg tablet 40 mg PO DAILY RF: 0 Referrals / Follow Up: Mauro Espinosa MD [Primary Care Provider] - Disposition Discharge Orders: Discharge Patient (Routine); Ordered 01/22/21 Ordered By: Dr. Landon Odell
== END 2021-01-22 10:43 | disposition home or self-care (01) ==
LOC: ED 08:23 → PCU 08:36 → AC 10:16
PROVIDERS: Emergency Provider Emergency Medicine; PCP Family Medicine; Visit Provider Otolaryngology
PROC: (CPT 31238; principal; 2021-01-22 08:25)
DX: R04.0 Epistaxis (principal); I10 Essential (primary) hypertension; E11.9 Type 2 diabetes mellitus without complications; E66.01 Morbid (severe) obesity due to excess calories; E78.5 Hyperlipidemia, unspecified; G47.33 Obstructive sleep apnea (adult) (pediatric); I25.2 Old myocardial infarction; I27.20 Pulmonary hypertension, unspecified; I48.0 Paroxysmal atrial fibrillation; J44.9 Chronic obstructive pulmonary disease, unspecified; Z68.42 Body mass index [BMI] 45.0-49.9, adult; Z79.4 Long term (current) use of insulin; Z79.01 Long term (current) use of anticoagulants; Z79.02 Long term (current) use of antithrombotics/antiplatelets; Z79.82 Long term (current) use of aspirin; Z79.899 Other long term (current) drug therapy; Z87.891 Personal history of nicotine dependence
CPT/HCPCS: 30903; 31238; 80048; 82962; 85025; 99284; J7030; A4216

== ENCOUNTER → 2021-04-24 10:08 | Outpatient (CLI) | payer MEDICARE, OTHER, SELFPAY ==
[2021-04-24 11:51] LABS: Albumin, Serum 3.3 g/dL (3.2-5.0); BUN 32 mg/dL (7-18); BUN/Creat Ratio 15.3 RATIO (10-20); Calcium,Total 8.9 mg/dL (8.5-10.1); Chloride 101 mmol/L (98-107); Creatinine, Serum 2.09 mg/dL (0.70-1.30); EST Glomerular Filtration Rate 33 mL/min (>60); Est Glom Filt Rate - Afr Amer 40 mL/min (>60); Glucose 144 mg/dL (74-106); Phosphorus 2.6 mg/dL (2.5-4.9); Potassium 4.3 mmol/L (3.5-5.1); Sodium Level 137 mmol/L (136-145)
[2021-04-24 11:59] LABS: PTHIN 80.8 pg/mL (18.4-80.1)
== END ==
PROVIDERS: PCP Family Medicine; Visit Provider Internal Medicine Nephrology
DX: N18.32 Chronic kidney disease, stage 3b (principal)
CPT/HCPCS: 36415; 80069; 83970

== ENCOUNTER 2021-08-01 10:03 | Outpatient (CLI) | payer MEDICARE, OTHER, SELFPAY ==
[2021-08-01 11:18] LABS: Albumin, Serum 3.4 g/dL (3.2-5.0); BUN 23 mg/dL (7-18); BUN/Creat Ratio 12.2 RATIO (10-20); Chloride 99 mmol/L (98-107); Creatinine, Serum 1.88 mg/dL (0.70-1.30); EST Glomerular Filtration Rate 37 mL/min (>60); Est Glom Filt Rate - Afr Amer 45 mL/min (>60); Glucose 155 mg/dL (74-106); Phosphorus 2.4 mg/dL (2.5-4.9); Potassium 3.3 mmol/L (3.5-5.1); Sodium Level 137 mmol/L (136-145)
== END 2021-08-01 23:59 | disposition home or self-care (01) ==
LOC: LAB 10:07
PROVIDERS: PCP Family Medicine; Visit Provider Internal Medicine Nephrology
DX: N18.32 Chronic kidney disease, stage 3b (principal)
CPT/HCPCS: 36415; 80069

== ENCOUNTER 2021-08-21 08:20 | Outpatient (CLI) | payer MEDICARE, OTHER, SELFPAY ==
[2021-08-21 09:09] LABS: Anion Gap 9 (5-15); BUN 54 mg/dL (7-18); BUN/Creat Ratio 23.3 RATIO (10-20); Calcium,Total 9.5 mg/dL (8.5-10.1); Chloride 90 mmol/L (98-107); Creatinine, Serum 2.32 mg/dL (0.70-1.30); EST Glomerular Filtration Rate 29 mL/min (>60); Est Glom Filt Rate - Afr Amer 35 mL/min (>60); Glucose 157 mg/dL (74-106); Potassium 2.6 mmol/L (3.5-5.1); Sodium Level 132 mmol/L (136-145)
== END 2021-08-21 23:59 | disposition home or self-care (01) ==
LOC: LAB 08:21
PROVIDERS: PCP Family Medicine; Visit Provider Internal Medicine Nephrology
DX: N18.32 Chronic kidney disease, stage 3b (principal); E87.6 Hypokalemia
CPT/HCPCS: 36415; 80048

== ENCOUNTER 2021-08-22 12:58 | Emergency (ER) | payer MEDICARE, OTHER, SELFPAY ==
[2021-08-22 13:00] VITALS: BP 118/69; PULSE 71; RESP 16; TEMP 36.4; O2SAT 95; BMI 39.6
--- NOTE | 2021-08-22 13:19 | CT_ITS ---
STUDY: CT PELVIS WITH CONTRAST REASON FOR EXAM: Male, 76 years old. Perianal abscess RADIATION DOSAGE (If Supplied By Facility): CTDIvol = ( 28.20 ) mGy, DLP = ( 1165.15 ) mGycm TECHNIQUE: Transaxial imaging of the pelvis was performed without oral contrast. IV 100mL Isovue-300 was administered intravenously. Individualized dose optimization techniques were used for this CT. COMPARISON: Comparison is made with prior study dated 03/12/2017. FINDINGS: Small cysts are seen in the lower pole of both kidneys more prominent on the right side. Normal urinary bladder. There is a 1.9 cm x 4.8 cm circumscribed fluid collection in the posterior perineum. Increased markings are seen in the surrounding fat. This most likely represents perianal abscess. Normal visualized small intestine. Normal visualized colon. There is no pelvic fluid. There is no pelvic lymphadenopathy or mass lesion. Endoluminal stent grafting of the distal abdominal aorta and common iliac arteries bilaterally. Moderate sized umbilical hernia containing fat. The neck of the hernia measures 2.3 cm. Small bilateral inguinal hernias containing fat. Small benign-appearing bilateral inguinal lymph nodes. Normal osseous structures. CT/Pelvis WITH IV Contrast IMPRESSION: 1.9 cm x 4.8 cm circumscribed fluid collection in the posterior perineum suggestive of a localized abscess. Umbilical hernia. Small bilateral inguinal hernias containing fat. Electronically Signed: Esequiel Vanegas MD at 15:09 EDT ,
--- NOTE | 2021-08-22 13:25 | EDS_ITS ---
HPI History of Present Illness Chief Complaint: Other, Pain/Inj Informant: patient and spouse/S.O. Onset/Context/Timing Onset: Days Current Severity: Moderate Maximum Severity: Moderate Narrative Narrative: Patient presents with bleeding from his perirectal area. He reports perirectal pain for the last week with bleeding for the last 2 or 3 days. He is currently on Eliquis for history of A. fib. Patient denies fever or chills. Occasional constipation. No urinary symptoms. [facility] Medical History COPD (chronic obstructive pulmonary disease) DM (diabetes mellitus), type 2 History of acute myocardial infarction HLD (hyperlipidemia) HTN (hypertension) Morbid obesity with body mass index of 40.0-49.9 Nosebleed KASIA on CPAP PAF (paroxysmal atrial fibrillation) Pulmonary hypertension SOB (shortness of breath) on exertion Umbilical hernia without obstruction or gangrene Ventral hernia without obstruction or gangrene Home Medications atorvastatin 20 mg PO QHS 10/04/14 [History Last Taken 09/29/18 19:00] glyburide 2.5 mg GT BIDCM 10/04/14 [History Last Taken 09/29/18 19:00] lisinopril-hydrochlorothiazide 1 ea PO DAILY 10/04/14 [History Last Taken 09/29/18 10:00] metoprolol tartrate 50 mg PO DAILY 10/04/14 [History Last Taken 09/29/18 10:00] cyanocobalamin (vitamin B-12) 1,000 mcg PO DAILY 09/30/18 [History Last Taken 09/29/18 10:00] insulin lispro 0 unit SQ ACHS 09/30/18 [History Last Taken 09/29/18 21:00] spironolactone 25 mg PO DAILY 09/30/18 [History Last Taken 09/29/18 10:00] apixaban 2.5 mg tablet 2.5 mg PO BID 03/12/20 [History Last Taken Unknown] levofloxacin 750 mg PO DAILY #6 tab 08/22/21 [Rx Last Taken Unknown] metronidazole 500 mg PO Q8H 7 Days #21 tab 08/22/21 [Rx Last Taken Unknown] torsemide 20 mg PO BID 08/22/21 [History Last Taken Unknown] Allergy/AdvReac Type Severity Reaction Status Date / Time No Known Allergies Allergy Verified 08/22/21 13:02 Family History Father Heart disease Mother Diabetes Heart disease Cancer Surgical History History of abdominal aortic aneurysm repair Social History Smoking Status: Former smoker quit date: 05/25/14 pack-years: 2 ROS ROS ED Constitutional Constitutional ED: Denies chills or fever(s) Eyes Eyes: Denies change in vision ENT ENT ED: Denies sore throat Cardiovascular Cardiovascular: Denies chest pain Respiratory/Chest Respiratory/Chest: Denies cough or dyspnea Gastrointestinal Gastrointestinal: Reports other Details: Bleeding from the perirectal area. ; Denies abdominal pain, nausea or vomiting Genitourinary Genitourinary ED: Denies dysuria Musculoskeletal Musculoskeletal: Denies back pain Integumentary Denies rash Neurologic Neurologic: Denies headache(s) or weakness Allergic/Immunologic Allergic/Immunologic ED: Denies urticaria EXAM Physical Exam Const Vital Signs: 08/22/21 13:00 08/22/21 14:09 08/22/21 15:20 Temperature 97.5 F L Temperature Source Temporal Pulse Rate 71 72 Respiratory Rate 16 18 18 Blood Pressure 118/69 108/66 Blood Pressure Mean 85 80 Pulse Ox 95 94 Oxygen Delivery Method Room Air Room Air Positive well nourished, well developed and obese General Appearance ED: well developed Nutritional Appearance: obese HEENT Reports moist mucous membranes Eyes PERRL and EOMs intact bilaterally Neck supple Chest Wall inspection of chest normal and palpation of chest normal Resp normal respiratory effort and clear to auscultation bilaterally Cardio regular rate and regular rhythm GI normal to inspection, nondistended, normoactive bowel sounds and non-tender GI Narrative: Patient has a draining perirectal abscess. Palpation: soft Neuro oriented x3 Sensorium / Orientation: alert Psych mental status grossly normal Skin no rashes or lesions noted MDM MDM MDM Narrative Medical decision making narrative: Patient given dose of fentanyl for pain. Lab work and CT pelvis ordered. Patient given IV Zosyn and vancomycin. Lab Data Attestation: I reviewed the patient's lab results. Labs: Laboratory Results - last 24 hr 08/22/21 08/22/21 13:50 13:50 WBC 11.9 H RBC 4.36 L Hgb 12.8 L Hct 37.8 L MCV 86.7 MCH 29.4 MCHC 33.9 RDW Std Deviation 44.9 H RDW Coeff of Charlee 14.0 Plt Count 144 L MPV 12.0 Immature Gran % (Auto) 0.500 Neut % (Auto) 76.7 H Lymph % (Auto) 10.0 L [place] % (Auto) 11.5 H Eos % (Auto) 0.9 Baso % (Auto) 0.4 Absolute Neuts (auto) 9.1 H Absolute Lymphs (auto) 1.19 Nucleated RBC % 0 Sodium 132 L Potassium 2.7 L* Chloride 89 L Carbon Dioxide 34.0 H Anion Gap 9 BUN 61 H Creatinine 2.20 H Estim Creat Clear Calc 27.12 Est GFR (MDRD) Af Amer 38 L Est GFR (MDRD) Non-Af 31 L BUN/Creatinine Ratio 27.7 H Glucose 100 Calcium 9.2 Radiography Diagnostic Testing: Clinical Impression(s) from Imaging Studies Pelvis CT 08/22/21 13:19 IMPRESSION: 1.9 cm x 4.8 cm circumscribed fluid collection in the posterior perineum suggestive of a localized abscess. Umbilical hernia. Small bilateral inguinal hernias containing fat. Electronically Signed: Esequiel Vanegas MD at 15:09 EDT , Treatment and Re-Evaluation Narrative: Patient's lab work reviewed. White count is mildly elevated 11.9. Chemistry studies reveal low potassium at 2.7. This is replaced orally. Patient does state that his doctor yesterday told him to double his home potassium as well. Creatinine is 2.2 which is consistent with baseline. CT scan does reveal a 1.9 x 4.8 cm fluid collection in the posterior perineum suggestive of a localized abscess. This is consistent with the patient's physical exam. Patient was turned and abscess was expressed as best as possible. Area is cleansed. He will be discharged with prescription for Levaquin and Flagyl. Return instructions provided. Discharge Plan Triage Chief Complaint: Other, Pain/Inj ED Provider: Alexandria Allison Dx/Rx/DC Orders Clinical Impression: Abscess of perineum, Hypokalemia Instructions: ED ABSCESS Areli-Anal Abx only Prescriptions: New levofloxacin 750 mg tablet 750 mg PO DAILY Qty: 6 RF: 0 metronidazole 500 mg tablet 500 mg PO Q8H 7 Days Qty: 21 RF: 0 No Action Eliquis 2.5 mg tablet 2.5 mg PO BID RF: 0 atorvastatin 20 MG tablet 20 mg PO QHS RF: 0 lisinopril-hydrochlorothiazide 1 EACH tablet 1 ea PO DAILY RF: 0 glyburide 2.5 MG tablet 2.5 mg GT BIDCM RF: 0 metoprolol tartrate 50 MG tablet 50 mg PO DAILY RF: 0 spironolactone 25 MG tablet 25 mg PO DAILY RF: 0 insulin lispro 100 UNIT/ML cartridge 0 unit SQ ACHS RF: 0 cyanocobalamin (vitamin B-12) 1,000 MCG capsule 1,000 mcg PO DAILY RF: 0 torsemide 20 mg tablet 20 mg PO BID RF: 0 Primary Care Provider: Mauro Espinosa Referrals: Mauro Espinosa MD [Primary Care Provider] - 1-2 Weeks Disposition Disposition: Home, Self Care
[2021-08-22] MEDS: Ondansetron 4 MG/2 ML Vial IV (14:02)
[2021-08-22] MEDS: fentaNYL 100 MCG/2 ML Ampul 25 MCG IV (14:03)
[2021-08-22 14:04] LABS: Absolute Lymphocyte Count 1.19 X10^3/uL (0.83-4.51); Absolute Neutrophil Count 9.1 X10^3/uL (2.0-7.7); Basophil# 0.05 X10^3/uL; Basophil% 0.4 % (0-1); Eosinophil# 0.11 X10^3/uL; Eosinophils% 0.9 % (0-5); Hematocrit 37.8 % (40-54); Hemoglobin 12.8 g/dL (13.0-16.5); Lymphocyte # 1.19 X10^3/ul (0.83-4.51); Mean Corp Hgb Conc 33.9 g/dL (32-36); Mean Corpuscular Hgb 29.4 pg (27.0-32.0); Mean Corpuscular Volume 86.7 fL (80-94); Monocyte# 1.37 X10^3/uL; Monocyte% 11.5 % (0-10); NRBC Flagged by Analyzer 0 % (0-5); Neutrophil # 9.13 X10^3/uL (2.7-7.7); Neutrophil % 76.7 % (47-70); Platelet Count 144 K/mm3 (150-450); RBC Distribution Width SD 44.9 fl (35.1-43.9); Red Blood Count 4.36 M/mm3 (4.6-6.2); White Blood Count 11.9 K/mm3 (4.4-11.0)
[2021-08-22] MEDS: 0.9% Normal Saline 1,000 ML 150 ML IV (14:06)
[2021-08-22] MEDS: Piperacil/Tazobactam 3.375 GM/50 ML ML IV (14:08)
[2021-08-22 14:09] VITALS: RESP 18
[2021-08-22 14:22] LABS: Anion Gap 9 (5-15); BUN 61 mg/dL (7-18); BUN/Creat Ratio 27.7 RATIO (10-20); Calcium,Total 9.2 mg/dL (8.5-10.1); Chloride 89 mmol/L (98-107); EST Glomerular Filtration Rate 31 mL/min (>60); Est Glom Filt Rate - Afr Amer 38 mL/min (>60); Estimated Creatinine Clearance 27.12 ml/min; Glucose 100 mg/dL (74-106); Potassium 2.7 mmol/L (3.5-5.1); Sodium Level 132 mmol/L (136-145)
[2021-08-22] MEDS: Potassium Chloride Oral Tablet 20 MEQ 40 MEQ PO (14:32)
[2021-08-22 15:20] VITALS: BP 108/66; PULSE 72; RESP 18; O2SAT 94
[2021-08-22] MEDS: DiphenhydrAMINE 50 MG/ML Syringe 12.5 MG IV (15:58)
[2021-08-22 17:56] VITALS: RESP 16
== END 2021-08-22 17:56 | disposition home or self-care (01) ==
PROVIDERS: Emergency Provider Emergency Medicine; PCP Family Medicine; Visit Provider Emergency Medicine
DX: L02.215 Cutaneous abscess of perineum (principal); J44.9 Chronic obstructive pulmonary disease, unspecified; I48.0 Paroxysmal atrial fibrillation; E66.01 Morbid (severe) obesity due to excess calories; E11.9 Type 2 diabetes mellitus without complications; Z79.4 Long term (current) use of insulin; I10 Essential (primary) hypertension; E87.6 Hypokalemia; E78.5 Hyperlipidemia, unspecified; G47.33 Obstructive sleep apnea (adult) (pediatric); Z79.84 Long term (current) use of oral hypoglycemic drugs; Z79.899 Other long term (current) drug therapy; Z87.891 Personal history of nicotine dependence
CPT/HCPCS: 72193; 80048; 85025; 87040; 96365; 96367; 99283; J7030; J7040; Q9967; A4216; J2405

== ENCOUNTER 2021-08-28 06:54 | Outpatient (CLI) | payer MEDICARE, OTHER, SELFPAY ==
[2021-08-28 07:33] LABS: Absolute Lymphocyte Count 1.55 X10^3/uL (0.83-4.51); Absolute Neutrophil Count 5.8 X10^3/uL (2.0-7.7); Basophil# 0.09 X10^3/uL; Basophil% 1.1 % (0-1); Eosinophil# 0.26 X10^3/uL; Eosinophils% 3.1 % (0-5); Hematocrit 38.6 % (40-54); Hemoglobin 12.7 g/dL (13.0-16.5); Lymphocyte # 1.55 X10^3/ul (0.83-4.51); Lymphocyte % 18.3 % (19-41); Mean Corp Hgb Conc 32.9 g/dL (32-36); Mean Corpuscular Hgb 29.1 pg (27.0-32.0); Mean Corpuscular Volume 88.3 fL (80-94); Mean Platelet Vol. 11.7 fl (6.2-12.0); Monocyte# 0.72 X10^3/uL; Monocyte% 8.5 % (0-10); NRBC Flagged by Analyzer 0 % (0-5); Neutrophil # 5.77 X10^3/uL (2.7-7.7); Neutrophil % 68.2 % (47-70); Platelet Count 159 K/mm3 (150-450); RBC Distribution Width CV 14.3 % (11.6-14.6); RBC Distribution Width SD 46.4 fl (35.1-43.9); Red Blood Count 4.37 M/mm3 (4.6-6.2); White Blood Count 8.5 K/mm3 (4.4-11.0)
[2021-08-28 08:08] LABS: Anion Gap 8 (5-15); BUN 57 mg/dL (7-18); BUN/Creat Ratio 25.3 RATIO (10-20); Calcium,Total 8.9 mg/dL (8.5-10.1); Chloride 93 mmol/L (98-107); Creatinine, Serum 2.25 mg/dL (0.70-1.30); EST Glomerular Filtration Rate 30 mL/min (>60); Est Glom Filt Rate - Afr Amer 37 mL/min (>60); Glucose 137 mg/dL (74-106); Potassium 2.8 mmol/L (3.5-5.1); Sodium Level 132 mmol/L (136-145)
== END 2021-08-28 23:59 | disposition home or self-care (01) ==
PROVIDERS: PCP Family Medicine; Referring Provider Internal Medicine Nephrology; Visit Provider Internal Medicine Nephrology
DX: E87.6 Hypokalemia (principal); K61.1 Rectal abscess; D72.829 Elevated white blood cell count, unspecified
CPT/HCPCS: 36415; 80048; 85025

== ENCOUNTER → 2021-11-13 | Outpatient (CLI) | payer MEDICARE, OTHER, SELFPAY ==
[2021-11-13 08:11] LABS: Albumin, Serum 3.2 g/dL (3.2-5.0); BUN 30 mg/dL (7-18); BUN/Creat Ratio 16.1 RATIO (10-20); Calcium,Total 8.9 mg/dL (8.5-10.1); Chloride 98 mmol/L (98-107); Creatinine, Serum 1.86 mg/dL (0.70-1.30); EST Glomerular Filtration Rate 38 mL/min (>60); Est Glom Filt Rate - Afr Amer 46 mL/min (>60); Glucose 123 mg/dL (74-106); Phosphorus 2.5 mg/dL (2.5-4.9); Potassium 3.3 mmol/L (3.5-5.1); Sodium Level 137 mmol/L (136-145)
== END | disposition home or self-care (01) ==
LOC: LAB 07:30
PROVIDERS: PCP Family Medicine; Visit Provider Internal Medicine Nephrology
DX: N18.32 Chronic kidney disease, stage 3b (principal); E87.6 Hypokalemia
CPT/HCPCS: 36415; 80069

== ENCOUNTER → 2021-11-20 | Outpatient (CLI) | payer MEDICARE, OTHER, SELFPAY ==
[2021-11-20 11:27] LABS: Albumin, Serum 2.9 g/dL (3.2-5.0); BUN 26 mg/dL (7-18); BUN/Creat Ratio 15.3 RATIO (10-20); Calcium,Total 8.9 mg/dL (8.5-10.1); Chloride 102 mmol/L (98-107); EST Glomerular Filtration Rate 42 mL/min (>60); Est Glom Filt Rate - Afr Amer 51 mL/min (>60); Glucose 114 mg/dL (74-106); Phosphorus 2.8 mg/dL (2.5-4.9); Potassium 3.5 mmol/L (3.5-5.1); Sodium Level 138 mmol/L (136-145)
== END | disposition home or self-care (01) ==
LOC: POLAB3 09:38
PROVIDERS: PCP Family Medicine; Visit Provider Internal Medicine Nephrology
DX: N18.32 Chronic kidney disease, stage 3b (principal)
CPT/HCPCS: 36415; 80069

== ENCOUNTER 2022-01-24 10:07 | Outpatient (RCR) | payer MEDICARE, OTHER, SELFPAY ==
--- NOTE | 2022-01-24 11:20 | HP.OTEVAL_ITS ---
Patient's Visit Information COSMO CARDONA is a 76 year old M, referred to Occupational Therapy by RICK GARCIA, with a diagnosis of BLE lymphedema. Date of Evaluation: 01/24/22 Occupational Therapist: Marily Garza, FIONA/Connie, CHT - Subjective This 76 year old male was seen for OT eval with dx of BLE lymphedema- pt states he has swelling for at least 10 years. pt states he has had a heart sx in 2015- pt is on a number of water pills-pt states he has a number of heart and kidney issues as well. pt sleeps in recliner- reports legs will decrease in size a little- both pt and family would like to know what more they can do to assist pt in mtg. edema. - Lymphedema (Circumferential Measure) Mid-foot: right 25cm left 24cm Ankle: right 31cm left 31cm Lower calf: right 36cm left 40cm Largest calf: right 52cm left 52cm Below knee: right 49cm left 49cm - Sensation Sensation Comments: denies - Lower Limb Functional Index Lower Extremity Functional Score: 35 - Goals Demonstrate a 20% reduction in edema by d/c: Yes Demonstrate adequate knowledge of self-massage by 2nd week: Yes Demonstrate adequate knowledge skin care/prec by 2nd week: Yes Demonstrate adequate knowledge therapeutic exercises by d/c: Yes Select approp compression garment w/donning/care/wear by d/c: Yes Voice need to replace compression garment every 4-6mo by dc: Yes - Rehabilitation General Assessment: 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 pt on life long mtg of lymphedema, compression garments 30-40mmHg, and lymph exercise- Today therapist ed. pt on needs and where they can purchase compression alternatives - Farrow wrap to decrease edema prior to getting compression socks- therapist ed. getting sooner next day or so better than waiting- both demo understanding- ed, on lymph stim ex and gave handout- both demo understand and will return for fitting and ed. on donning garment when they get them. Rehabilitation Potential: Questionable - Anticipated Interventions Education re assistive Equipment, Education re Diagnosis, Education re Life-long lymphedema Management, Education re Skin Care and Precautions, Education re Self Massage Techniques, Education re Correct Donning Tech,Care&Wearing Sched Comp Garments, Caregiver Training, Home Program - Visit Plan TEXT: Thank you for the opportunity to evaluate your patient. For Medicare and Medicare HMO plans, please review the plan of care and approve it. It will need to be FAXED BACK to us at [phone] for Medicare purposes. Please let me know if there are questions or concerns regarding this plan of care. Physician Signature: Date:____
--- NOTE | 2022-04-30 11:39 | HP.OT.NRP ---
COSMO CARDONA was seen in my office for initial evaluation on 01/24/22. The following Plan of Care was established for this patient: Anticipated Interventions: Education re assistive Equipment, Education re Diagnosis, Education re Life-long lymphedema Management, Education re Skin Care and Precautions, Education re Self Massage Techniques, Education re Correct Donning Tech,Care&Wearing Sched Comp Garments, Caregiver Training, Home Program This patient was last seen in our office 01/24/22. Pertinent comments regarding their Occupational therapy will appear below: Pt was seen for OT eval only. No further apts scheduled and due to time lapse in services pt d.c at this time. At this point I will be discontinuing this patient from occupational therapy. I would be happy to see this patient again in the future if found appropriate by the physician. Thank you! Marily Garza, OTR/L, CHT
== END 2022-01-24 19:00 | disposition home or self-care (01) ==
LOC: OT 10:07
PROVIDERS: PCP Family Medicine
DX: I89.0 Lymphedema, not elsewhere classified (principal); E11.21 Type 2 diabetes mellitus with diabetic nephropathy; Z79.4 Long term (current) use of insulin
CPT/HCPCS: 97166; 97530

== ENCOUNTER → 2022-03-06 | Outpatient (CLI) | payer MEDICARE, OTHER, SELFPAY ==
[2022-03-06 16:18] LABS: BUN 35 mg/dL (7-18); BUN/Creat Ratio 20.3 RATIO (10-20); Calcium,Total 8.9 mg/dL (8.5-10.1); Chloride 102 mmol/L (98-107); Creatinine, Serum 1.72 mg/dL (0.70-1.30); EST Glomerular Filtration Rate 41 mL/min (>60); Est Glom Filt Rate - Afr Amer 50 mL/min (>60); Glucose 137 mg/dL (74-106); Phosphorus 2.5 mg/dL (2.5-4.9); Potassium 3.5 mmol/L (3.5-5.1); Sodium Level 138 mmol/L (136-145)
== END | disposition home or self-care (01) ==
LOC: LAB 14:48
PROVIDERS: PCP Family Medicine; Visit Provider Internal Medicine Nephrology
DX: N18.32 Chronic kidney disease, stage 3b (principal)
CPT/HCPCS: 36415; 80069

== ENCOUNTER → 2022-07-15 | Outpatient (CLI) | payer MEDICARE, OTHER, SELFPAY ==
[2022-07-15 13:34] LABS: Absolute Lymphocyte Count 1.09 X10^3/uL (0.83-4.51); Absolute Neutrophil Count 5.1 X10^3/uL (2.0-7.7); Basophil# 0.07 X10^3/uL; Basophil% 0.9 % (0-1); Eosinophil# 0.25 X10^3/uL; Eosinophils% 3.4 % (0-5); Hematocrit 35.2 % (40-54); Hemoglobin 11.3 g/dL (13.0-16.5); Lymphocyte # 1.09 X10^3/ul (0.83-4.51); Lymphocyte % 14.8 % (19-41); Mean Corp Hgb Conc 32.1 g/dL (32-36); Mean Corpuscular Hgb 29.9 pg (27.0-32.0); Mean Corpuscular Volume 93.1 fL (80-94); Mean Platelet Vol. 11.2 fl (6.2-12.0); Monocyte# 0.85 X10^3/uL; Monocyte% 11.5 % (0-10); NRBC Flagged by Analyzer 0 % (0-5); Neutrophil # 5.09 X10^3/uL (2.7-7.7); Platelet Count 137 K/mm3 (150-450); RBC Distribution Width CV 14.6 % (11.6-14.6); RBC Distribution Width SD 49.8 fl (35.1-43.9); Red Blood Count 3.78 M/mm3 (4.6-6.2); White Blood Count 7.4 K/mm3 (4.4-11.0)
[2022-07-15 14:16] LABS: PTHIN 138.4 pg/mL (18.4-80.1)
[2022-07-15 14:22] LABS: Albumin, Serum 3.4 g/dL (3.2-5.0); BUN 53 mg/dL (7-18); BUN/Creat Ratio 22.3 RATIO (10-20); Calcium,Total 9.1 mg/dL (8.5-10.1); Chloride 98 mmol/L (98-107); Creatinine, Serum 2.38 mg/dL (0.70-1.30); EST Glomerular Filtration Rate 28 mL/min (>60); Est Glom Filt Rate - Afr Amer 34 mL/min (>60); Glucose 112 mg/dL (74-106); Iron 63 ug/dL (65-175); Iron Binding Capacity,Total 274 ug/dL (250-450); Phosphorus 3.8 mg/dL (2.5-4.9); Potassium 4.4 mmol/L (3.5-5.1); Sodium Level 134 mmol/L (136-145)
== END | disposition home or self-care (01) ==
LOC: LAB 12:56
PROVIDERS: PCP Family Medicine; Referring Provider Internal Medicine Nephrology; Visit Provider Internal Medicine Nephrology
DX: N17.9 Acute kidney failure, unspecified (principal); D64.9 Anemia, unspecified
CPT/HCPCS: 36415; 80069; 83540; 83550; 83970; 85025

== ENCOUNTER → 2023-03-31 | Outpatient (CLI) | payer MEDICARE, OTHER, SELFPAY ==
[2023-03-31 10:50] LABS: PTHIN 121.2 pg/mL (18.4-80.1)
[2023-03-31 11:22] LABS: Albumin, Serum 3.5 g/dL (3.2-5.0); BUN 30 mg/dL (7-18); BUN/Creat Ratio 16.8 RATIO (10-20); Chloride 103 mmol/L (98-107); Creatinine, Serum 1.79 mg/dL (0.70-1.30); EST Glomerular Filtration Rate 39 mL/min (>60); Est Glom Filt Rate - Afr Amer 48 mL/min (>60); Glucose 104 mg/dL (74-106); Sodium Level 136 mmol/L (136-145)
== END | disposition home or self-care (01) ==
LOC: LAB 08:51
PROVIDERS: PCP Family Medicine; Referring Provider Internal Medicine Nephrology; Visit Provider Internal Medicine Nephrology
DX: N18.4 Chronic kidney disease, stage 4 (severe) (principal); D50.9 Iron deficiency anemia, unspecified
CPT/HCPCS: 36415; 80069; 83970